=== PATIENT | female | born 2000 | race Caucasian/White ===

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

== ENCOUNTER 2019-06-23 19:42 | Emergency (ER) | payer MEDICAID, SELFPAY ==
[2019-05-28 15:12] VITALS: BMI 43.0
[2019-06-23 19:44] VITALS: BP 152/88; PULSE 124; RESP 18; TEMP 36.5; O2SAT 100; BMI 44.2
--- NOTE | 2019-06-23 19:53 | ED.VISSUMM ---
- ER Visit Summary Date of Service: 06/23/19 Chief Complaint: Vomiting and diarrhea History of Present Illness: The patient is a 19 F presenting with vomiting and diarrhea. Patient states that started on Monday. She had several episodes of both vomiting and diarrhea. She denies blood in her stool or emesis. No sick contacts. No recent travel. No bad food exposure. She denies abdominal pain. Denies fever. She complains of dysuria. She is unsure if she could be . She went tanning last night and has redness to her face and back. Denies other complaints. Physical Examination: Vitals are stable. Patient is afebrile. Heart rate 124. Alert no acute distress. HEENT exam facial erythema with no blistering Neck is supple. Lungs are clear and equal bilaterally. Heart is regular and tachycardic Abdomen is soft nontender nondistended. No guarding or rebound Extremities are unremarkable. Skin is warm and dry. Erythematous with no blistering No focal neurologic deficit. Remainder of exam is unremarkable. Emergency Department Course and Treatment: Patient was given IV fluids, Zofran. CBC, chemistries unremarkable. Urinalysis unremarkable. hCG negative. Repeat heart rate 95. Patient is feeling improved on reevaluation. She is given prescription for Zofran. Advised to follow-up with primary care physician. Advised return to ED if worsening complaints. Disposition: Discharge home Impression: Vomiting and diarrhea This note was generated with Right Hemisphere dictation software. It may contain incorrect words, spelling, and punctuation that were not noted in review of the chart prior to signing ED Disposition - Plan for ED Patient: Instructions: VOMITING AND DIARRHEA, Nonspecific (Adult) Prescriptions: Ondansetron [Zofran Odt] 4 mg PO Q8H PRN PRN #10 tab PRN Reason: Nausea Prescription Printed Referrals: Gwen Palomares MD [Primary Care Provider] -
[2019-06-23] MEDS: 0.9% Normal Saline 1,000 ML 1000 ML IV (20:07)
[2019-06-23] MEDS: Ondansetron 4 MG/2 ML Vial IV (20:07)
[2019-06-23 20:20] LABS: Absolute Lymphocyte Count 2.49 X10^3/uL (0.83-4.51); Absolute Neutrophil Count 6.2 X10^3/uL (2.0-7.7); Basophil# 0.02 X10^3/uL; Basophil% 0.2 % (0-1); Eosinophil# 0.12 X10^3/uL; Eosinophils% 1.3 % (0-5); Hematocrit 38.8 % (37-47); Hemoglobin 12.4 g/dL (12.0-15.0); Lymphocyte # 2.49 X10^3/ul (4.0); Lymphocyte % 26.8 % (19-41); Mean Corpuscular Hgb 25.7 pg (27.0-32.0); Mean Corpuscular Volume 80.3 fL (81-99); Mean Platelet Vol. 9.2 fl (6.2-12.0); Monocyte# 0.43 X10^3/uL; Monocyte% 4.6 % (0-10); NRBC Flagged by Analyzer 0 % (0-5); Neutrophil # 6.18 X10^3/uL (2.7-7.7); Neutrophil % 66.7 % (47-70); Platelet Count 331 K/mm3 (150-450); RBC Distribution Width CV 15.3 % (11.6-14.6); RBC Distribution Width SD 44.6 fl (35.1-43.9); Red Blood Count 4.83 M/mm3 (4.2-5.4); White Blood Count 9.3 K/mm3 (4.4-11.0)
[2019-06-23 20:28] LABS: Internal QC Validated? YES +Cl - CLEAR BKGD; Pregnancy, Serum, hCG Quali. NEGATIVE Negative
[2019-06-23 20:32] LABS: Anion Gap 7 (5-15); BUN 14 mg/dL (7-18); BUN/Creat Ratio 17.2 RATIO (10-20); Calcium,Total 8.9 mg/dL (8.5-10.1); Chloride 106 mmol/L (98-107); Creatinine, Serum 0.82 mg/dL (0.55-1.02); EST Glomerular Filtration Rate 95 mL/min (>60); Est Glom Filt Rate - Afr Amer 115 mL/min (>60); Glucose 99 mg/dL (74-106); Potassium 3.7 mmol/L (3.5-5.1); Sodium Level 141 mmol/L (136-145)
[2019-06-23 20:48] LABS: Mucous, Urine 0 SEEN /hpf (<or=2+); Red Blood Cells-Urine 0 SEEN /hpf (0-5)
[2019-06-23 20:50] LABS: Color, Urine Yellow (Yellow); Glucose, Dipstick Normal (Normal); Ketone-Dipstick Negative (Negative); Leukocyte Esterase-Dipstick 500 /ul (Negative); Nitrite-Dipstick Negative (Negative); Occult Blood-Urine Negative /ul (Negative); Protein-Dipstick Negative (Negative); Specific Gravity, Urine 1.025 (1.002-1.030); Urine Bilirubin Dipstick Negative (Negative); Urine Clarity Cloudy (Clear); Urine Urobilinogen Normal (Normal)
[2019-06-23 20:57] LABS: Squamous Epithelial Cells - UA 10-25 SEEN /hpf (5-10); White Blood Cells 0-5 SEEN /hpf (0-5)
[2019-06-23 20:58] LABS: Bacteria 2+ /hpf (None Seen)
--- NOTE | 2019-06-23 21:09 | ED.DEP ---
ED Disposition - Plan for ED Patient: Instructions: VOMITING AND DIARRHEA, Nonspecific (Adult) Prescriptions: Ondansetron [Zofran Odt] 4 mg PO Q8H PRN PRN #10 tablet PRN Reason: Nausea Referrals: Gwen Palomares MD [Primary Care Provider] -
[2019-06-23 21:25] VITALS: BP 148/86; PULSE 105; RESP 16; O2SAT 96
== END 2019-06-23 21:26 | disposition home or self-care (01) ==
LOC: ED 19:55
PROVIDERS: Emergency Provider Emergency Medicine; PCP Internal Medicine
DX: R11.2 Nausea with vomiting, unspecified (principal); R19.7 Diarrhea, unspecified; R30.0 Dysuria; R00.0 Tachycardia, unspecified
CPT/HCPCS: 80048; 81001; 84703; 85025; 96361; 96374; 99283; J7030; J2405

== ENCOUNTER 2020-03-29 16:05 | Outpatient (CLI) | payer MEDICAID, SELFPAY ==
[2020-03-29 16:38] VITALS: BMI 46.0
[2020-03-29 17:06] LABS: ROM Internal Control Test YES-OK TO RESULT pt. (Internal QC); ROM Patient Test Negative (Negative)
--- NOTE | 2020-04-13 08:24 | OB.TRI.PN ---
Progress Notes Date of Service: 04/28/20 Progress Note: S: 31w1d with MALVIN: 05/30/20 with complaint of leakage of fluid. No vaginal bleeding. O: Reactive NST 135, moderate variability, accels. No contractions. ROM Plus negative result. A:Vaginal Discharge P: 1) Discharge home with PTL precautions Laboratory Studies: Laboratory Tests 03/29/20 Range/Units 16:35 Vag Amniotic Fld Detect Negative (Negative)
== END 2020-03-29 17:45 | disposition home or self-care (01) ==
LOC: WPOUT 16:18 → OBT 16:18
PROVIDERS: PCP Internal Medicine; Visit Provider Advanced Practice Midwife
DX: O23.593 Infection of other part of genital tract in pregnancy, third trimester (principal); Z3A.31 31 weeks gestation of pregnancy
CPT/HCPCS: 59025; 59050; 84112; 99218; G0378

== ENCOUNTER 2020-05-17 23:00 | Outpatient (CLI) | payer MEDICAID, SELFPAY ==
[2020-05-17 23:20] VITALS: TEMP 36.7; O2SAT 97
[2020-05-17 23:22] VITALS: BP 123/77; PULSE 103
[2020-05-17 23:43] VITALS: BMI 46.5
[2020-05-18 00:03] LABS: ROM Internal Control Test YES-OK TO RESULT pt. (Internal QC); ROM Patient Test Negative (Negative)
--- NOTE | 2020-05-18 07:03 | OB.TRI.NOTE ---
History of Present Illness Date of Service: 05/17/20 Was patient seen by the physician?: No Reason For Visit: RULE OUT LABOR Date of Service: 05/17/20 Final MALVIN: 05/30/20 Final MALVIN Source: US <20 weeks Gestational age: 38 Weeks and 2 Days Allergies Penicillins [PCN] Allergy (Verified 05/17/20 23:38) Itching - Pertinent Past Medical History Medical History: Past Medical History (Last Reviewed 05/28/19 @ 15:12 by Martinez Cisneros) Depression Psoriasis Laboratory Studies: Laboratory Tests 05/17/20 Range/Units 23:30 Vag Amniotic Fld Detect Negative (Negative) Physical Exam Vitals: Vital Signs Temp Pulse BP Pulse Ox 98.1 F 103 H 123/77 H 97 05/17/20 23:20 05/17/20 23:22 05/17/20 23:22 05/17/20 23:20 NST - FHR Rate Baby A Baseline: 120 Variability:: Moderate Accelerations:: 15 x 15 Decelerations:: Variable NST Reactive:: Non-Reactive FHR Category:: Category II Uterine Activity:: irreg ctxs Impression/Plan 20 YOF w/ false labor NST accels are broken up, doesn't meet criteria will call patient for NST today and reeval
== END 2020-05-18 00:20 | disposition home or self-care (01) ==
LOC: WPOUT 23:11 → WP 23:12
PROVIDERS: PCP Internal Medicine; Visit Provider Obstetrics & Gynecology
DX: O47.1 False labor at or after 37 completed weeks of gestation (principal); Z3A.38 38 weeks gestation of pregnancy
CPT/HCPCS: 59025; 59050; 84112; 99218; G0378

== ENCOUNTER 2020-05-18 23:45 | Outpatient (CLI) | payer MEDICAID, SELFPAY ==
[2020-05-17 23:43] VITALS: BMI 46.5
[2020-05-18 23:58] VITALS: BP 111/68; PULSE 108; TEMP 36.6; O2SAT 99
[2020-05-19 00:03] VITALS: BMI 46.0
--- NOTE | 2020-05-22 11:12 | OB.TRI.NOTE ---
- Problem List (1) Decreased movement Status: Acute History of Present Illness Date of Service: 05/18/20 Was patient seen by the physician?: No Reason For Visit: DECREASED MOVEMENT Date of Service: 05/18/20 Final MALVIN: 05/30/20 Final MALVIN Source: US <20 weeks Gestational age: 38 Weeks and 6 Days History of Present Illness: female at 38w4d presents to labor and delivery for decreased movement. No contractions, vaginal bleeding or leakage of fluid. Allergies Penicillins [PCN] Allergy (Verified 05/19/20 00:05) Itching - Pertinent Past Medical History Medical History: Past Medical History (Last Reviewed 05/28/19 @ 15:12 by Martinez Cisneros) Depression Psoriasis Physical Exam Vitals: Vital Signs Temp Pulse BP Pulse Ox 97.8 F 108 H 111/68 99 05/18/20 23:58 05/18/20 23:58 05/18/20 23:58 05/18/20 23:58 NST - FHR Rate Baby A Baseline: 130 Variability:: Moderate Accelerations:: 15 x 15 Decelerations:: None NST Reactive:: Yes Uterine Activity:: Irregular Impression/Plan A:Decreased movement P: 1) Reactive NST 2) Keep appointment in office as scheduled.
== END 2020-05-19 01:00 | disposition home or self-care (01) ==
LOC: WPOUT 23:46 → WP 23:48
PROVIDERS: PCP Internal Medicine; Visit Provider Advanced Practice Midwife
DX: O36.8130 Decreased fetal movements, third trimester, not applicable or unspecified (principal); Z3A.38 38 weeks gestation of pregnancy
CPT/HCPCS: 59025; 59050; 99218; G0378

== ENCOUNTER 2020-05-23 06:50 | Inpatient (IN) | payer MEDICAID, SELFPAY ==
[2020-05-23] VITALS (58 sets, daily range): BP systolic 112–158; BP diastolic 58–89; PULSE 85–118; TEMP 36.1–37.5; O2SAT 93–100; BMI 47.2
[2020-05-23] MEDS: Lactated Ringers 1,000 ML 50 ML IV (08:40)
[2020-05-23] MEDS: Oxytocin 30 units/NS 500 ml 30 UNITS/500 ML IV.SOLN IV (08:41)
[2020-05-23] MEDS: Mag Hydrox/Al Hydrox/Simeth 30 ML UDC PO (09:22)
[2020-05-23 09:37] LABS: Absolute Lymphocyte Count 3.05 X10^3/uL (0.83-4.51); Absolute Neutrophil Count 6.7 X10^3/uL (2.0-7.7); Basophil# 0.02 X10^3/uL; Basophil% 0.2 % (0-1); Eosinophil# 0.07 X10^3/uL; Eosinophils% 0.7 % (0-5); Hematocrit 32.2 % (37-47); Hemoglobin 10.2 g/dL (12.0-15.0); Lymphocyte # 3.05 X10^3/ul (4.0); Lymphocyte % 29.4 % (19-41); Mean Corp Hgb Conc 31.7 g/dL (32-36); Mean Corpuscular Hgb 25.5 pg (27.0-32.0); Mean Corpuscular Volume 80.5 fL (81-99); Mean Platelet Vol. 9.4 fl (6.2-12.0); Monocyte# 0.54 X10^3/uL; Monocyte% 5.2 % (0-10); NRBC Flagged by Analyzer 0 % (0-5); Neutrophil # 6.68 X10^3/uL (2.7-7.7); Neutrophil % 64.2 % (47-70); Platelet Count 294 K/mm3 (150-450); RBC Distribution Width CV 15.2 % (11.6-14.6); RBC Distribution Width SD 44.3 fl (35.1-43.9); White Blood Count 10.4 K/mm3 (4.4-11.0)
[2020-05-23] MEDS: Lactated Ringers 500 ML 999 ML IV ×2 (10:05→17:36)
[2020-05-23] MEDS: fentaNYL-bupivacaine (epidural) 100 ML BAG EPIDURAL ×3 (11:07→15:28)
--- NOTE | 2020-05-23 12:04 | HP.PCM_ITS ---
- Problem List (1) Encounter for elective induction of labor Status: Acute (2) Obesity affecting Status: Acute (3) History of depression Status: Acute History Date of Admission: 05/03/18 Final MALVIN: 05/30/20 Final MALVIN Source: US <20 weeks Gestational age: 39 Weeks and 0 Days History of this : This is a 20 year-old, G [2], P [1001], at 39 weeks gestational age for elective induction of labor. complicated by obesity. Medical History: Medical History (Last Reviewed 05/28/19 @ 15:12 by Martinez Cisneros) Depression F32.9 Psoriasis L40.9 Allergies Penicillins [PCN] Allergy (Verified 05/19/20 00:05) Itching Home Medications: Home Medications Prenatabs FA 1 tab PO DAILY 03/29/20 Acetaminophen [Tylenol] 650 mg PO PRN PRN 05/17/20 cycloBENZAPRine HCl [Flexeril] 5 mg PO TID PRN 05/23/20 Smoking Status: Never smoker Alcohol: None Number of Fetus(es): 1 NST - FHR Rate Baby A Baseline: 125 Variability:: Moderate Accelerations:: 15 x 15 Decelerations:: None NST Reactive:: Yes FHR Category:: Category I Uterine Activity:: Irregular History Past Pregnancies: Past Pregnancies Delivery Date Name GA/ Weeks Outcome Route Wt Sex Labor Length Anesthesia Delivery Location Provider FOB Labs: Mom's Problem List Problem Status Onset Code Encounter for elective induction of labor Acute Z34.90 Obesity affecting Acute O99.210 History of depression Acute Z86.59 Mom's Labs & Results 05/23/20 05/23/20 09:20 09:20 WBC 10.4 RBC 4.00 L Hgb 10.2 L Hct 32.2 L MCV 80.5 L MCH 25.5 L MCHC 31.7 L RDW Std Deviation 44.3 H RDW Coeff of Nneka 15.2 H Plt Count 294 MPV 9.4 Immature Gran % (Auto) 0.300 Neut % (Auto) 64.2 Lymph % (Auto) 29.4 [place] % (Auto) 5.2 Eos % (Auto) 0.7 Baso % (Auto) 0.2 Absolute Neuts (auto) 6.7 Absolute Lymphs (auto) 3.05 Nucleated RBC % 0 Blood Type A POSITIVE Antibody Screen NEGATIVE Course Did the patient receive Yes care? Labs Blood Type: A RH: POSITIVE RPR/VDRL/Syphilis Nonreactive Rubella status Immune HbSAg Negative Chlamydia Negative Gonorrhea Negative HIV/AIDS Non-Reactive Group B Strep: Negative Current Obstetrical History Gestational Diabetes No Incompetent Cervix No Infertility No IUGR No Macrosomia No Hypertension/Pre-eclampsia No Placenta Previa/Abruption No PTL/PROM No Uterine anomaly No Oligohydramnios No Polyhydramnios No Multiple gestation No Past Medical History Asthma Yes: has inhalers for use prn Diabetes No Hypertension No Heart disease No Mitral valve prolapse No Neurologic/Seizure disorder/ Yes: Migraines Migraines Kidney disease No Liver disease No Varicosities No Clotting disorders/Hx of DVT No Thyroid Dysfunction No Other medical diseases No Psychiatric disorders Yes: Hx. Depression - off Zoloft during Major trauma No Abnormal PAP smear No Sleep apnea No Mammogram in the last 2 years No Medications Taken During Dose/Freq.: [Flexeril] 5 mg tid prn Reason for taking medication [ last taken a few months ago maybe Flexeril] Social History Marital Status: SINGLE Alleged father Jose Angel Lopez Hx Smoking No Smoking Status Never smoker Expected Delivery Method: Spontaneous Vaginal Review of Systems Constitutional: Denies: Chills, Fever, Weight Change HEENT: Denies: Head Aches, Sinus Congestion, Sinus Drainage Cardiovascular: Denies: Chest Pain, Palpitations Respiratory: Denies: Cough, Shortness of breath at rest, Sputum production Gastrointestinal: Denies: Abdominal Pain, Nausea, Vomiting Genitourinary: Denies: Dysuria Musculoskeletal: Denies: Joint Pain, Joint Tenderness Skin: Denies: Rash, Wounds Neurological: Denies: Numbness, Tingling, Focal weakness Psychiatric: Denies: Anxiety, Depression, Homicidal Ideations, Suicidal Ideations Hematologic/ Lymphatic: Denies: Easy Bruising, Easy Bleeding Physical Exam Vitals: Vital Signs Temp Pulse BP Pulse Ox 97.6 F L 105 H 114/59 L 100 05/23/20 09:30 05/23/20 11:59 05/23/20 11:27 05/23/20 11:59 General: Alert, Oriented x3, No apparent distress HEENT: Atraumatic, Normocephalic Cardiovascular: Regular rate, Regular Rhythm, No murmurs Lungs: Clear to auscultation, Normal air movement, No rhonchi, No wheeze Abdomen: Soft, Non Tender, Gravid Extremities:: No edema INSTRUMENT CALIBRATOR: Normal external genitalia Estimated gestational size: Appropriate for gestational size Presentation: Cephalic Cervix Dilation (cm): 4 - AROM for small amount of clear fluid. IUPC and FSE placed, tolerated well. Station: -2 Effacement (%): 50 Assessment/Plan All Active Problems (Last Reviewed 05/28/19 @ 15:12 by Martinez Cisneros) Decreased movement (Acute) Encounter for elective induction of labor (Acute) Obesity affecting (Acute) History of depression (Acute) Physical exam, pre-employment (Acute) Vaginal discharge during in third trimester (Acute) False labor after 37 weeks of gestation without delivery (Acute) This is a 20 year-old, G [2], P [1001], at 39 weeks gestational age. A:Elective Induction of Labor Obesity in P: 1) Admit to labor and delivery 2) Routine labs. GBS negative. COVID test negative. Patient denies and covid symptoms. 3) Epidural for pain management, effective 4) AROM, IUPC and FSE placed. 5) notified of patient status and admission. Collaborative physician.
[2020-05-23] MEDS: Amnioinfusion- 0.9% NS 1,000 ML IV.SOLN. 999 ML INTRA-UTER (17:39)
--- NOTE | 2020-05-23 19:07 | PCM.PN.OB ---
Patient Problems: Active and Suspected Problems (Last Reviewed 05/28/19 @ 15:12 by Martinez Cisneros) Encounter for elective induction of labor (Acute) Obesity affecting (Acute) History of depression (Acute) Subjective: Sitting up in bed high fowlers, comfortable with epidural. Father of baby at bedside. Objective: FHR 125, moderate variability, accels, variable decels, category 2. TOCO:every 2-4 minutes, strong Aminoinfusion at 100ml/hr Cervical exam 9cm/100%/-1 with caput - Physical Exam Vitals/I&O's: Vital Signs Temp Pulse BP Pulse Ox 97.2 F L 101 H 130/79 H 100 05/23/20 18:48 05/23/20 18:47 05/23/20 18:47 05/23/20 18:47 Weight: 283 lb 15.286 oz Body Mass Index (BMI) 47.2 Intake and Output for Last 24 Hours 05/21/20 05/22/20 05/23/20 23:59 23:59 23:59 Intake Total 2394.30 / 2394.30 Output Total 475 / 475 Balance 1919.30 / 1919.30 Laboratory Results 05/23/20 09:20: WBC 10.4, RBC 4.00 L, Hgb 10.2 L, Hct 32.2 L, MCV 80.5 L, MCH 25.5 L, MCHC 31.7 L, RDW Std Deviation 44.3 H, RDW Coeff of Nneka 15.2 H, Plt Count 294, MPV 9.4, Immature Gran % (Auto) 0.300, Neut % (Auto) 64.2, Lymph % (Auto) 29.4, Dare % (Auto) 5.2, Eos % (Auto) 0.7, Baso % (Auto) 0.2, Absolute Neuts (auto) 6.7, Absolute Lymphs (auto) 3.05, Nucleated RBC % 0 05/23/20 09:20: Blood Type A POSITIVE, Antibody Screen NEGATIVE Current Medications Acetaminophen (Acetaminophen 500 Mg Tablet) 500 - 1,000 mg PO Q6H PRN PRN PRN Reason: Pain Score 1-3 Al Hydroxide/Mg Hydroxide (Mag Hydrox/Al Hydrox/Simeth 30 Ml Udc) 15 - 30 ml PO Q4H PRN PRN PRN Reason: INDIGESTION Last Admin: 05/23/20 09:22 Dose: 30 ml Documented by: Citric Acid/Sodium Citrate (Sodium Citrate/Citric Acid 30 Ml Udc) 30 ml PO X1 PRN PRN Reason: Section Ephedrine Sulfate (Ephedrine Sulfate 50 Mg/Ml Ampul) 10 mg IV Q10M PRN PRN Reason: hypotension Ephedrine Sulfate (Ephedrine Sulfate 50 Mg/Ml Ampul) 10 mg IM Q30M PRN PRN Reason: hypotension Fentanyl Citrate (Fentanyl 100 Mcg/2 Ml Ampul) 25 - 50 mcg IV Q2H PRN PRN PRN Reason: Pain Score 4-10 Fentanyl/Bupivacaine/Sodium Chlor (Fentanyl-Bupivacaine (Epidural) 100 Ml Bag) 0 ml EPIDURAL UD [facility]; Protocol Last Admin: 05/23/20 15:28 Dose: 100 ml Documented by: Lactated Ringer's () 500 mls @ 999 mls/hr IV .Q31M PRN PRN Reason: Epidural Last Infusion: 05/23/20 10:35 Dose: Infused Documented by: Lactated Ringer's () 500 mls @ 999 mls/hr IV .Q31M PRN PRN Reason: Corrective Measures Last Infusion: 05/23/20 18:05 Dose: Infused Documented by: Lactated Ringer's () 1,000 mls @ 50 mls/hr IV .Q20H [facility] Last Infusion: 05/23/20 18:05 Dose: 186 mls/hr Documented by: Oxytocin/Sodium Chloride () 30 units in 500 mls @ 2 mls/hr IV .Q250H [facility] Last Infusion: 05/23/20 18:57 Dose: 14 mls/hr Documented by: Nalbuphine HCl (Nalbuphine 10 Mg/Ml Ampul) 5 mg IV Q3H PRN PRN PRN Reason: ITCHING Naloxone HCl (Naloxone 0.4 Mg/Ml Syringe) 0.02 mg IV Q1M PRN PRN Reason: RR <10 and pt unresponsive Ondansetron HCl (Ondansetron 4 Mg/2 Ml Vial) 4 mg IV Q4H PRN PRN PRN Reason: NAUSEA Prochlorperazine Edisylate (Prochlorperazine 10 Mg/2 Ml Vial) 10 mg IV Q6H PRN PRN PRN Reason: NAUSEA Sodium Chloride (0.9% Saline Lock 10 Ml Syringe) 10 - 40 ml IV X1 PRN PRN Reason: SALINE FLUSH Medical Necessity - Tobacco Use Smoking Status: Never smoker Assessment/Plan All Active Problems (Last Reviewed 05/28/19 @ 15:12 by Martinez Cisneros) Decreased movement (Acute) Encounter for elective induction of labor (Acute) Obesity affecting (Acute) History of depression (Acute) Physical exam, pre-employment (Acute) Vaginal discharge during in third trimester (Acute) False labor after 37 weeks of gestation without delivery (Acute) A:Active Labor progressing Category 2 FHT P: 1) Continue with active management 2) Pitocin infusion 3) Positional changes 4) updated on patient status
[2020-05-23] MEDS: Oxytocin 30 units/NS 500 ml 30 UNITS/500 ML IV.SOLN 334 UNITS IV (20:42)
--- NOTE | 2020-05-23 20:58 | PCM.OPRPT ---
Problem List (1) Encounter for elective induction of labor Status: Acute (2) Obesity affecting Status: Acute (3) History of depression Status: Acute (4) Vaginal delivery Status: Acute (5) First degree perineal laceration Status: Acute Vaginal Delivery Maternal Presentation: Active Labor Method of Induction: Pitocin Amniotic Membrane Rupture Type: Artificial Amniotic Fluid Description: Clear Final MALVIN: 05/30/20 Gestational age: 39 Weeks and 0 Days Date of Procedure: 05/23/20 Pre-Operative Diagnosis: Induction of labor Post-Operative Diagnosis: Vaginal delivery Surgery/ Procedure Performed: Spontaneous Vaginal Delivery Type of Anesthesia: Epidural Description of Procedure: Progressed to complete with urge to push. of viable male infant over first degree perineal laceration at 2040. APGARS 7, 9. Head delivered with nuchal hand and CAN x1, delivered through. Infant delivered and placed on maternal abdomen. Mouth and nares wiped for secretions, strong cry. Pitocin started for active 3rd stage management. Cord clamped and cut, delayed clamping after pulsations ceased by FOB. Placenta delivered with expression, intact, 3 vessel cord. Perineum inspected and revealed first degree laceration, repaired with 3.0 vicryl rapide in normal fashion under epidural analgesia. Vaginal sweep completed by me, sponge and instrument count correct. Fundus firm, hemostasis achieved, EBL 150 ml. Mom and baby stable, planning to breastfeed, family bonding well. notified. Presentation: Vertex Placental Delivery Description: Spontaneous Placenta Disposition: [facility] Cord Vessel Description: 3 Vessels Cord Entanglement: Around neck x 1, loose Estimated Blood Loss: 150 ml A gender: Male (1 minute): 7 (5 minute): 9 Episiotomy Description: None Laceration: Perineal Extension/lac, 1st degree Medications given after delivery: IV Pitocin Complications: None
--- NOTE | 2020-05-23 23:30 | NURSING ---
Epidural catheter removed, blue tip intact.
--- NOTE | 2020-05-24 00:16 | NURSING ---
Report given to Katie MARTINEZ, taking over pt and care at this time.
[2020-05-24] MEDS: Acetaminophen 500 MG Tablet 1000 MG PO (00:54)
[2020-05-24 02:35] VITALS: BP 124/77; PULSE 85; RESP 18; TEMP 37.1; O2SAT 98
--- NOTE | 2020-05-24 03:37 | NURSING ---
This RN assuming care of patient and at this time. Report received from Yolette MARTINEZ.
--- NOTE | 2020-05-24 04:13 | NURSING ---
0330- This RN gave report to David Gonzalez RN.
[2020-05-24 04:38] VITALS: BP 109/62; PULSE 100; RESP 16; TEMP 36.9
[2020-05-24] MEDS: Naproxen 250 MG Tablet 500 MG PO ×2 (06:32→16:25)
[2020-05-24 08:00] VITALS: BP 125/66; PULSE 91; RESP 18; TEMP 36.2; O2SAT 98
[2020-05-24 12:00] VITALS: BP 122/76; PULSE 99; RESP 18; TEMP 36.3
[2020-05-24 15:08] LABS: Hematocrit 29.2 % (37-47); Hemoglobin 9.2 g/dL (12.0-15.0); Mean Corp Hgb Conc 31.5 g/dL (32-36); Mean Corpuscular Hgb 25.3 pg (27.0-32.0); Mean Corpuscular Volume 80.2 fL (81-99); Mean Platelet Vol. 9.2 fl (6.2-12.0); Platelet Count 258 K/mm3 (150-450); RBC Distribution Width CV 15.5 % (11.6-14.6); RBC Distribution Width SD 45.2 fl (35.1-43.9); Red Blood Count 3.64 M/mm3 (4.2-5.4); White Blood Count 11.9 K/mm3 (4.4-11.0)
--- NOTE | 2020-05-24 15:39 | PCM.PN.OB ---
Patient Problems: Active and Suspected Problems (Last Reviewed 05/28/19 @ 15:12 by Martinez Cisneros) Encounter for elective induction of labor (Acute) Obesity affecting (Acute) History of depression (Acute) Vaginal delivery (Acute) First degree perineal laceration (Acute) Subjective: Doing well per patient and nursing staff. Ambulating and taking PO without difficulty. Voiding and passing flatus. and bottle feeding. Denies any headache, visual changes, chest pain, shortness of breath, leg pain or increased bleeding. Lochia normal. Planning D/C home tomorrow. - Physical Exam Vitals/I&O's: Vital Signs Temp Pulse Resp BP Pulse Ox 97.4 F L 99 18 122/76 H 98 05/24/20 12:00 05/24/20 12:00 05/24/20 12:00 05/24/20 12:00 05/24/20 08:00 Oxygen Delivery Method Room Air Weight: 283 lb 15.286 oz Body Mass Index (BMI) 47.2 Intake and Output for Last 24 Hours 05/22/20 05/23/20 05/24/20 23:59 23:59 23:59 Intake Total 3402.17 / 3402.17 Output Total 675 / 675 1000 / 1000 Balance 2727.17 / 2727.17 -1000 / -1000 General: Alert, Oriented x3, Cooperative HEENT: Atraumatic, Normocephalic Neck: Trachea Midline Lungs: Clear to auscultation, Normal air movement, No rhonchi, No wheeze Cardiovascular: Regular rate, Regular Rhythm, No murmurs Abdomen: Bowel Sounds Present, Soft - fundus firm 2 below U Extremities: Edema - +1 BLE edema. No clonus Psych/Mental Status: Normal Affect, Appropriate Laboratory Results 05/24/20 14:55: WBC 11.9 H, RBC 3.64 L, Hgb 9.2 L, Hct 29.2 L, MCV 80.2 L, MCH 25.3 L, MCHC 31.5 L, RDW Std Deviation 45.2 H, RDW Coeff of Nneka 15.5 H, Plt Count 258, MPV 9.2 Current Medications Acetaminophen (Acetaminophen 500 Mg Tablet) 1,000 mg PO Q8H PRN PRN PRN Reason: Pain Score 1-3 Last Admin: 05/24/20 00:54 Dose: 1,000 mg Documented by: Bisacodyl (Bisacodyl 10 Mg Suppository) 10 mg RECTAL UD PRN PRN Reason: If no BM Dibucaine (Dibucaine 30 Gm Tube) 1 applic TOPICAL TID PRN PRN; Protocol PRN Reason: Discomfort Hydrocortisone (Hydrocortisone 2.5% Crm) 1 applic TOPICAL TID PRN PRN; Protocol PRN Reason: Discomfort Methylergonovine Maleate (Methylergonovine 0.2 Mg/Ml Ampul) 0.2 mg IM X1 PRN PRN Reason: Excess bleeding/uterine atony Naproxen (Naproxen 250 Mg Tablet) 500 mg PO Q8H PRN PRN PRN Reason: Pain Score 1-3 Last Admin: 05/24/20 06:32 Dose: 500 mg Documented by: Ondansetron HCl (Ondansetron 4 Mg/2 Ml Vial) 4 mg IV Q4H PRN PRN PRN Reason: Nausea Senna/Docusate Sodium (Senna/Docusate Sodium 1 Tablet) 1 - 2 tablet PO DAILY PRN PRN PRN Reason: Constipation Simethicone (Simethicone 80 Mg Tablet) 80 mg PO PCHS PRN PRN Reason: Indigestion/Stomach pain Sodium Chloride (0.9% Saline Lock 10 Ml Syringe) 5 - 15 ml IV UD PRN PRN Reason: SALINE FLUSH Medical Necessity - Tobacco Use Smoking Status: Never smoker Assessment/Plan All Active Problems (Last Reviewed 05/28/19 @ 15:12 by Martinez Cisneros) Decreased movement (Acute) Encounter for elective induction of labor (Acute) Obesity affecting (Acute) History of depression (Acute) Vaginal delivery (Acute) First degree perineal laceration (Acute) Physical exam, pre-employment (Acute) Vaginal discharge during in third trimester (Acute) False labor after 37 weeks of gestation without delivery (Acute) A:PPD #1 and Bottle feeding P: 1) Routine care 2) pain controlled 3) Planning D/C home tomorrow.
[2020-05-24] MEDS: Senna/Docusate Sodium 1 Tablet PO (16:25)
[2020-05-24 16:37] VITALS: BP 109/54; PULSE 94; RESP 18; TEMP 36.9
[2020-05-24 20:05] VITALS: BP 113/70; PULSE 80; RESP 18; TEMP 36.2
[2020-05-25] MEDS: Naproxen 250 MG Tablet 500 MG PO (00:37)
[2020-05-25 03:30] VITALS: BP 122/75; PULSE 83; RESP 18; TEMP 36.5
[2020-05-25 08:00] VITALS: BP 123/66; PULSE 85; RESP 16; TEMP 36.7
--- NOTE | 2020-05-25 08:17 | PCM.PN.OB ---
Patient Problems: Active and Suspected Problems (Last Reviewed 05/28/19 @ 15:12 by Martinez Cisneros) Encounter for elective induction of labor (Acute) Obesity affecting (Acute) History of depression (Acute) Vaginal delivery (Acute) First degree perineal laceration (Acute) Subjective: Patient seen at bedside. Feeling good. Denies any pain. with support from department. Ambulating and voiding without difficulty. Had 2 BMs. Lochia decreasing. Requesting discharge home today. - Physical Exam Vitals/I&O's: Vital Signs Temp Pulse Resp BP Pulse Ox 97.7 F L 83 18 122/75 H 98 05/25/20 03:30 05/25/20 03:30 05/25/20 03:30 05/25/20 03:30 05/24/20 08:00 Oxygen Delivery Method Room Air Weight: 283 lb 15.286 oz Body Mass Index (BMI) 47.2 Intake and Output for Last 24 Hours 05/23/20 05/24/20 05/25/20 23:59 23:59 23:59 Intake Total 3402.17 / 3402.17 Output Total 675 / 675 1000 / 1000 Balance 2727.17 / 2727.17 -1000 / -1000 General: Alert, Oriented x3 Oral: Moist Mucosa Lungs: Normal air movement Cardiovascular: Regular rate Abdomen: Soft, Non Tender, Non-Distended Extremities: No Calf Tenderness Skin: No rashes Neurological: Cranial nerves II-XII grossly intact Laboratory Results 05/24/20 14:55: WBC 11.9 H, RBC 3.64 L, Hgb 9.2 L, Hct 29.2 L, MCV 80.2 L, MCH 25.3 L, MCHC 31.5 L, RDW Std Deviation 45.2 H, RDW Coeff of Nneka 15.5 H, Plt Count 258, MPV 9.2 Current Medications Acetaminophen (Acetaminophen 500 Mg Tablet) 1,000 mg PO Q8H PRN PRN PRN Reason: Pain Score 1-3 Last Admin: 05/24/20 00:54 Dose: 1,000 mg Documented by: Bisacodyl (Bisacodyl 10 Mg Suppository) 10 mg RECTAL UD PRN PRN Reason: If no BM Dibucaine (Dibucaine 30 Gm Tube) 1 applic TOPICAL TID PRN PRN; Protocol PRN Reason: Discomfort Hydrocortisone (Hydrocortisone 2.5% Crm) 1 applic TOPICAL TID PRN PRN; Protocol PRN Reason: Discomfort Methylergonovine Maleate (Methylergonovine 0.2 Mg/Ml Ampul) 0.2 mg IM X1 PRN PRN Reason: Excess bleeding/uterine atony Naproxen (Naproxen 250 Mg Tablet) 500 mg PO Q8H PRN PRN PRN Reason: Pain Score 1-3 Last Admin: 05/25/20 00:37 Dose: 500 mg Documented by: Ondansetron HCl (Ondansetron 4 Mg/2 Ml Vial) 4 mg IV Q4H PRN PRN PRN Reason: Nausea Senna/Docusate Sodium (Senna/Docusate Sodium 1 Tablet) 1 - 2 tablet PO DAILY PRN PRN PRN Reason: Constipation Last Admin: 05/24/20 16:25 Dose: 2 tablet Documented by: Simethicone (Simethicone 80 Mg Tablet) 80 mg PO PCHS PRN PRN Reason: Indigestion/Stomach pain Sodium Chloride (0.9% Saline Lock 10 Ml Syringe) 5 - 15 ml IV UD PRN PRN Reason: SALINE FLUSH Medical Necessity - Tobacco Use Smoking Status: Never smoker Assessment/Plan All Active Problems (Last Reviewed 05/28/19 @ 15:12 by Martinez Cisneros) Decreased movement (Acute) Encounter for elective induction of labor (Acute) Obesity affecting (Acute) History of depression (Acute) Vaginal delivery (Acute) First degree perineal laceration (Acute) Physical exam, pre-employment (Acute) Vaginal discharge during in third trimester (Acute) False labor after 37 weeks of gestation without delivery (Acute) PPD #2 1st degre laceration Routine care support Discharge home with follow up in office
--- NOTE | 2020-05-25 08:20 | DCINST_ITS ---
Discharge Diet: No Restrictions Discharge Activity: Return to Normal Activity May resume sexual activity in: 6-8 weeks Weight Bearing Status: Weight bearing as tolerated Additional Instructions: If you experience any of the following, contact your healthcare provider. * Bleeding that soaks a pad every hour for 2 hours * Fever 100.4 or higher * Unrelieved incision or abdominal pain * Swelling, redness, discharge or bleeding from your incision or episiotomy site * Your incision begins to separate * Problems urinating (including inability to urinate or burning while urinating). * Visual changes * Severe headache * Flu-like symptoms * Pain or redness in one of both of your breasts * Pain, warmth, tenderness or swelling in your legs, especially the calf area * Frequent nausea and vomiting * Symptoms of depression or anxiety If you experience any of the following, call 911 or go to the nearest Emergency Room. * Chest pain * Problems breathing * Seizure activity * Partial or complete paralysis of a body part, slurred speech, weakness or drooping of the face, or a sudden inability to walk or hold your balance Allergies/Adverse Reactions: Allergies Penicillins [PCN] Allergy (Verified 05/19/20 00:05) Itching Medications to take at Discharge Prenatabs FA 1 tab PO DAILY 03/29/20 When: Virtual visit- 2 weeks Primary Care Physician: Gwen Palomares MD [Primary Care Provider] - Test Results: Test results from this visit will be discussed in further detail at your follow- up appointment, if applicable. Proposed Discharge Date: 05/25/20
--- NOTE | 2020-05-25 08:20 | PCM.DCVAG ---
Discharge Diet: No Restrictions Discharge Activity: Return to Normal Activity May resume sexual activity in: 6-8 weeks Weight Bearing Status: Weight bearing as tolerated Additional Instructions: If you experience any of the following, contact your healthcare provider. Bleeding that soaks a pad every hour for 2 hours Fever 100.4 or higher Unrelieved incision or abdominal pain Swelling, redness, discharge or bleeding from your incision or episiotomy site Your incision begins to separate Problems urinating (including inability to urinate or burning while urinating). Visual changes Severe headache Flu-like symptoms Pain or redness in one of both of your breasts Pain, warmth, tenderness or swelling in your legs, especially the calf area Frequent nausea and vomiting Symptoms of depression or anxiety If you experience any of the following, call 911 or go to the nearest Emergency Room. Chest pain Problems breathing Seizure activity Partial or complete paralysis of a body part, slurred speech, weakness or drooping of the face, or a sudden inability to walk or hold your balance Allergies/Adverse Reactions: Allergies Penicillins [PCN] Allergy (Verified 05/19/20 00:05) Itching Medications to take at Discharge Prenatabs FA 1 tab PO DAILY 03/29/20 When: Virtual visit- 2 weeks Primary Care Physician: Gwen Palomares MD [Primary Care Provider] - Test Results: Test results from this visit will be discussed in further detail at your follow-up appointment, if applicable. Proposed Discharge Date: 05/25/20
[2020-05-25 12:54] VITALS: BP 131/77; PULSE 96; RESP 15; TEMP 36.6
== END 2020-05-25 12:55 | disposition home or self-care (01) | DRG 560 ==
PROVIDERS: Admitting Provider Advanced Practice Midwife; PCP Internal Medicine; Visit Provider Advanced Practice Midwife
DX: O99.214 Obesity complicating childbirth (principal); E66.9 Obesity, unspecified; O69.81X0 Labor and delivery complicated by cord around neck, without compression, not applicable or unspecified; O99.52 Diseases of the respiratory system complicating childbirth; J45.909 Unspecified asthma, uncomplicated; O70.0 First degree perineal laceration during delivery; Z3A.39 39 weeks gestation of pregnancy; Z37.0 Single live birth
CPT/HCPCS: 36415; 59025; 59050; 85025; 85027; 86850; 86900; 86901; 99218; J7030; J7120; G0378

== ENCOUNTER 2021-04-12 12:03 | Emergency (ER) | payer MEDICAID, SELFPAY ==
[2021-04-12 12:03] VITALS: BP 152/99; PULSE 118; RESP 16; TEMP 36.4; O2SAT 98; BMI 45.7
--- NOTE | 2021-04-12 12:50 | US_ITS ---
INDICATION: PAIN RUQ/EPIGASTRIC PAIN EXAMINATION: Ultrasound US Abdomen Limited (quadrant) TECHNIQUE: Montes scale imaging and DOPPLER imaging right upper quadrant performed. COMPARISON: None. FINDINGS: Liver demonstrates mild increased echogenicity. No intermetatarsal dilatation. Expected hepatopedal portal flow. Gallbladder is within normal limits. There is no pericholecystic fluid. No gallstones. No report of Smith''s sign. Common bile duct is 4 mm. Gallbladder wall is 2 mm. Pancreas as visualized demonstrates expected echogenicity. Portion of the right kidney visualized within normal limits. US/Gallbladder IMPRESSION: Fatty infiltration of the liver otherwise negative Electronically Signed: Anjel Dowling MD at 14:24 EST Tel , Service support ,
--- NOTE | 2021-04-12 12:51 | ED.VIS.GI ---
HPI HPI - GI History of Present Illness Chief Complaint: Abd Pain Informant: patient Abdominal Pain/Flank Pain Onset: Today Context: Gradual Onset Timing: Continuous and Waxes and wanes Quality: Aching Location: Epigastric and RUQ Current Severity: Severe Maximum Severity: Severe Worsened by: Nothing Relieved by: Nothing Nausea/Vomiting/Emesis GI Symptom: Positive for Nausea and Vomiting Diarrhea/Melena/Hematochezia GI Symptom: Positive for Diarrhea; Negative for Melena and Hematochezia Stool Quality: Negative for Black, Maroon and BRB per rectum Associated Symptoms Associated Symptoms: Negative for Dysuria, Frequency, Hematuria and Urgency Narrative Narrative: Patient presenting with discomfort that started when she woke up at 3 AM but it was only mild, epigastrium and right upper quadrant, worse after eating buttered toast this morning, associated with vomiting and diarrhea. No fevers or chills. No radiation of the pain into her back. Never had this before. No history of any surgeries in her abdomen. Not currently. She had a taco for dinner last night but did not have any discomfort afterwards until she woke up at 3 AM. Prior similar symptoms: No PFSH PFSH Medical History (Updated 04/12/21 @ 16:[address] Christian Barfield MD) Depression Psoriasis Home Medications Prenatabs FA 1 tab PO DAILY 03/29/20 [History Last Taken 05/21/20 10:00 1 tab] dicyclomine 20 mg PO Q6H PRN PRN #20 capsule 04/12/21 [Rx Last Taken Unknown] metoclopramide HCl 10 mg PO Q6H PRN #16 tab 04/12/21 [Rx Last Taken Unknown] omeprazole 20 mg PO DAILY #14 capsule 04/12/21 [Rx Last Taken Unknown] Allergy/AdvReac Type Severity Reaction Status Date / Time Penicillins [PCN] Allergy Itching Verified 04/12/21 12:05 Social History Smoking Status: Never smoker ROS ROS ED Constitutional Constitutional ED: Denies chills or fever(s) Eyes Eyes: Denies change in vision or diplopia ENT ENT ED: Denies rhinorrhea or sore throat Cardiovascular Cardiovascular: Denies chest pain or palpitations Respiratory/Chest Respiratory/Chest: Denies cough or dyspnea Gastrointestinal Gastrointestinal: Reports abdominal pain, diarrhea, nausea and vomiting Genitourinary Genitourinary ED: Denies dysuria or hematuria Musculoskeletal Musculoskeletal: Denies back pain or neck pain Integumentary Denies abscess or rash Neurologic Neurologic: Denies headache(s), paresthesias or weakness Psychiatric Psychiatric: Denies anxiety or suicidal thoughts EXAM Physical Exam Const Vital Signs: 04/12/21 12:03 04/12/21 15:32 Temperature 97.6 F L Temperature Source Temporal Pulse Rate 118 H 88 Respiratory Rate 16 Blood Pressure 152/99 H 118/80 Blood Pressure Mean 116 92 Pulse Ox 98 Oxygen Delivery Method Room Air Positive well nourished and well developed General Appearance ED: well developed and NAD HEENT Reports moist mucous membranes normocephalic and atraumatic Eyes PERRL and EOMs intact bilaterally Neck full ROM and supple Resp normal respiratory effort and clear to auscultation bilaterally Cardio regular rate, regular rhythm and no murmurs GI non-distended GI Narrative: Moderate-severe tenderness epigastrium and right upper quadrant with positive Smith's, mildly tender right lower quadrant otherwise benign abdomen. Auscultation: normoactive bowel sounds Palpation: soft Back/Spine no CVA tenderness General Back: other FROM Extremity normal to inspection General Extremety ED: Negative for edema, pulses abnormal or tenderness General Extremity: Negative for edema or pulses abnormal Neuro oriented x3, CN's II-XII intact bilaterally and no sensory deficits noted Sensorium / Orientation: awake and alert Motor Exam: strength 5/5 throughout Skin no rashes or lesions noted and no wounds MDM MDM MDM Narrative Medical decision making narrative: Patient is very tender in the right upper quadrant so initially ultrasound of the gallbladder was obtained in addition to blood work and urinalysis. It was all normal. Therefore since she was tender throughout the right side including the right lower quadrant, a CT of the abdomen/pelvis with IV contrast was obtained and it was also unremarkable for anything acute. The patient had requested an additional dose of analgesics other than the initial morphine and Zofran she was given, she was given another dose of morphine which did help but she was still in discomfort. Given that everything is normal, differential includes intraluminal functional intestinal causes of abdominal pain in addition to biliary colic although she has no cholelithiasis. In order to diagnose functional gallbladder problems she will need an outpatient HIDA scan, however she is able to have that as an outpatient, it is not available at this time since his nuclear medicine, and she can follow-up if her symptoms persist. She had some mild guarding in the right upper quadrant but not in the lower abdomen to make me think this is an acute ovarian problem, the focus of her pain really is in her upper abdomen. I only did the CT because she did have some mild discomfort in her right lower quadrant around the area of McBurney's point to ensure this is not acute appendicitis, and no other acute abdominal issues such as mesenteric adenopathy were seen. Differential also includes intestinal spasm due to viral gastroenteritis if that is what is causing her vomiting and diarrhea but she did not have any diarrhea to send for testing here in the emergency department and she does not have risk for C. difficile or other acute bacterial causes. Patient is comfortable with this overall plan. Lab Data Attestation: I reviewed the patient's lab results. Labs: Laboratory Results - last 24 hr 04/12/21 04/12/21 04/12/21 13:20 13:20 14:10 WBC 8.7 RBC 4.93 Hgb 13.0 Hct 39.6 MCV 80.3 L MCH 26.4 L MCHC 32.8 RDW Std Deviation 45.0 H RDW Coeff of Nneka 15.6 H Plt Count 301 MPV 9.0 Immature Gran % (Auto) 0.300 Neut % (Auto) 81.1 H Lymph % (Auto) 14.5 L [place] % (Auto) 3.1 Eos % (Auto) 0.9 Baso % (Auto) 0.1 Absolute Neuts (auto) 7.0 Absolute Lymphs (auto) 1.26 Nucleated RBC % 0 Sodium 137 Potassium 3.8 Chloride 107 Carbon Dioxide 25.0 Anion Gap 5 BUN 15 Creatinine 0.56 Estim Creat Clear Calc 136.07 Est GFR (MDRD) Af Amer 175 Est GFR (MDRD) Non-Af 145 BUN/Creatinine Ratio 27.0 H Glucose 90 Calcium 8.8 Total Bilirubin 0.40 AST 18 ALT 34 Alkaline Phosphatase 102 Total Protein 8.3 H Albumin 3.4 Globulin 4.9 H Albumin/Globulin Ratio 0.7 L Lipase 95 Urine Color Yellow Urine Clarity Cloudy Urine pH 7.0 Ur Specific [place] 1.010 Urine Protein Negative Urine Glucose (UA) Normal Urine Ketones Negative Urine Occult Blood Negative Urine Nitrite Negative Urine Bilirubin Negative Urine Urobilinogen Normal Ur Leukocyte Esterase 25 H Urine RBC 0 SEEN Urine WBC 0-5 SEEN Ur Squamous Epith Cells 0-5 SEEN Urine Bacteria 2+ Urine Mucus 0 SEEN Urine Test Negative Radiography Diagnostic Testing: Clinical Impression(s) from Imaging Studies Gallbladder Ultrasound 04/12/21 12:50 IMPRESSION: Fatty infiltration of the liver otherwise negative Electronically Signed: Anjel Dowling MD at 14:24 EST Tel , Service support , Abdomen/Pelvis CT 04/12/21 15:20 IMPRESSION: Trace free fluid in the pelvis likely physiologic in this young menstruating female. Mild fatty infiltration of the liver. Pars defect L5 without significant listhesis. The appendix is visualized within normal limits. Electronically Signed: Anjel Dowling MD at 16:45 EST Tel , Service support , Discharge Plan Triage Chief Complaint: Abd Pain ED Provider: Christian Barfield Dx/Rx/DC Orders Clinical Impression: Right-sided abdominal pain of unknown etiology, Nausea, vomiting and diarrhea Instructions: Abdominal Pain, ED Vomiting and Diarrhea ... Prescriptions: New dicyclomine 10 MG capsule 20 mg PO Q6H PRN PRN (Reason: abdominal discomfort) Qty: 20 RF: 0 metoclopramide HCl [metoclopramide HCl] 10 MG tablet 10 mg PO Q6H PRN (Reason: nausea and vomiting) Qty: 16 RF: 0 omeprazole [omeprazole] 20 MG capsule 20 mg PO DAILY Qty: 14 RF: 0 No Action Prenatabs FA 1 tab PO DAILY RF: 0 Primary Care Provider: Gwen Palomares Referrals: Gwen Palomares MD [Primary Care Provider] - 3-5 Days if not improving Disposition Disposition: Home, Self Care
[2021-04-12] MEDS: Ketorolac 30 MG/ML Syringe IV (13:30)
[2021-04-12] MEDS: Ondansetron 4 MG/2 ML Vial IV (13:30)
[2021-04-12] MEDS: Morphine 4 MG/ML Syringe IV ×2 (13:30→15:55)
[2021-04-12 13:45] LABS: Absolute Lymphocyte Count 1.26 X10^3/uL (0.83-4.51); Basophil# 0.01 X10^3/uL; Basophil% 0.1 % (0-1); Eosinophil# 0.08 X10^3/uL; Eosinophils% 0.9 % (0-5); Hematocrit 39.6 % (37-47); Lymphocyte # 1.26 X10^3/ul (0.83-4.51); Lymphocyte % 14.5 % (19-41); Mean Corp Hgb Conc 32.8 g/dL (32-36); Mean Corpuscular Hgb 26.4 pg (27.0-32.0); Mean Corpuscular Volume 80.3 fL (81-99); Monocyte# 0.27 X10^3/uL; Monocyte% 3.1 % (0-10); NRBC Flagged by Analyzer 0 % (0-5); Neutrophil # 7.03 X10^3/uL (2.7-7.7); Neutrophil % 81.1 % (47-70); Platelet Count 301 K/mm3 (150-450); RBC Distribution Width CV 15.6 % (11.6-14.6); Red Blood Count 4.93 M/mm3 (4.2-5.4); White Blood Count 8.7 K/mm3 (4.4-11.0)
[2021-04-12 13:58] LABS: ALB/GLOB Ratio 0.7 RATIO (0.9-2.4); AST(SGOT) 18 U/L (15-37); Alanine Aminotransfer ALT/SGPT 34 U/L (13-56); Albumin, Serum 3.4 g/dL (3.2-5.0); Alkaline Phosphatase 102 U/L (45-117); Anion Gap 5 (5-15); BUN 15 mg/dL (7-18); Calcium,Total 8.8 mg/dL (8.5-10.1); Chloride 107 mmol/L (98-107); Creatinine, Serum 0.56 mg/dL (0.55-1.02); EST Glomerular Filtration Rate 145 mL/min (>60); Est Glom Filt Rate - Afr Amer 175 mL/min (>60); Estimated Creatinine Clearance 136.07 ml/min; Globulin 4.9 g/dL (2.2-4.2); Glucose 90 mg/dL (74-106); Lipase 95 U/L (73-393); Potassium 3.8 mmol/L (3.5-5.1); Protein, Total 8.3 g/dL (6.4-8.2); Sodium Level 137 mmol/L (136-145)
[2021-04-12 14:18] LABS: Mucous, Urine 0 SEEN /hpf (<or=2+); Red Blood Cells-Urine 0 SEEN /hpf (0-5)
[2021-04-12 14:23] LABS: Color, Urine Yellow (Yellow); Glucose, Dipstick Normal (Normal); Ketone-Dipstick Negative (Negative); Leukocyte Esterase-Dipstick 25 /ul (Negative); Nitrite-Dipstick Negative (Negative); Occult Blood-Urine Negative /ul (Negative); Protein-Dipstick Negative (Negative); Urine Bilirubin Dipstick Negative (Negative); Urine Clarity Cloudy (Clear); Urine Urobilinogen Normal (Normal)
[2021-04-12 14:29] LABS: Bacteria 2+ /hpf (None Seen); Internal QC Validated? YES +Cl - CLEAR BKGD; Pregnancy, Urine Negative Negative; Squamous Epithelial Cells - UA 0-5 SEEN /hpf (5-10); White Blood Cells 0-5 SEEN /hpf (0-5)
--- NOTE | 2021-04-12 15:20 | CT_ITS ---
INDICATION: R sided abd pain EXAMINATION: CT ABDOMEN AND PELVIS WITH CONTRAST - CT Abdomen And Pelvis W/ Contrast Injection TECHNIQUE: Helically acquired images were obtained of the abdomen and pelvis following IV contrast. A radiation dose optimization technique was used for this scan. Oral contrast: None. COMPARISON: None. FINDINGS: LOWER CHEST: Mild subpleural atelectasis lung bases. LIVER: Mild low-attenuation of the liver suggests mild fatty infiltration. No focal mass. GALLBLADDER AND BILIARY TREE: No calcified gallstones. No gallbladder distension or wall edema. No intra- or extrahepatic biliary ductal dilation. PANCREAS: No focal cystic or solid mass. SPLEEN: Normal size without focal cystic or solid mass. ADRENAL GLANDS: No nodules. KIDNEYS AND URETERS: 2 low-attenuation lesions left kidney likely a cyst. No hydronephrosis. PERITONEUM: Trace free fluid noted in the pelvis could be physiologic. No other fluid collection. BOWEL: No evidence of acute appendicitis. No stomach or bowel distension. No focal inflammatory change. LYMPH NODES: No enlarged mesenteric or retroperitoneal lymph nodes. VESSELS: Aorta is non-dilated. URINARY BLADDER: Unremarkable. REPRODUCTIVE ORGANS: No pelvic masses. ABDOMINAL WALL: No discrete abdominal or pelvic wall hernia. BONES: Pars defect seen L5. CT/Abdomen/Pelvis W IV Cont ONLY IMPRESSION: Trace free fluid in the pelvis likely physiologic in this young menstruating female. Mild fatty infiltration of the liver. Pars defect L5 without significant listhesis. The appendix is visualized within normal limits. Electronically Signed: Anjel Dowling MD at 16:45 EST Tel , Service support ,
[2021-04-12 15:32] VITALS: BP 118/80; PULSE 88
[2021-04-12] MEDS: Dicyclomine 20 MG/2 ML Vial IM (17:43)
[2021-04-12] MEDS: Mag Hydrox/Al Hydrox/Simeth 30 ML UDC PO (17:43)
[2021-04-12 17:53] VITALS: BP 130/67; PULSE 90
== END 2021-04-12 18:01 | disposition home or self-care (01) ==
PROVIDERS: Emergency Provider Emergency Medicine; PCP Internal Medicine
DX: R10.9 Unspecified abdominal pain (principal); R11.2 Nausea with vomiting, unspecified; R19.7 Diarrhea, unspecified; Z79.899 Other long term (current) drug therapy
CPT/HCPCS: 74177; 76705; 80053; 81001; 81025; 83690; 85025; 96372; 96374; 96375; 96376; 99285; Q9967; A4216; J2405

== ENCOUNTER 2021-04-21 20:41 | Emergency (ER) | payer MEDICAID, SELFPAY ==
[2021-04-21 20:43] VITALS: BP 131/87; PULSE 92; RESP 14; TEMP 36.2; O2SAT 100; BMI 45.7
--- NOTE | 2021-04-21 20:55 | ED.RN ---
Patient unable to have BM at this time. She did void in the hat but it was filled with toilet paper so unable to collect a specimen. Returned to room to change and await provider.
[2021-04-21 20:56] VITALS: BP 141/79; PULSE 100; RESP 17; TEMP 36.7; O2SAT 100
--- NOTE | 2021-04-21 21:00 | ED.RN ---
patient shows this nurse photos of moderate bright red blood on toilet paper and reports the bleeding started yesterday. Says she has abdominal pain that she came in here for, last Monday.
--- NOTE | 2021-04-21 21:15 | CT_ITS ---
STUDY: CT ABDOMEN AND PELVIS WITH CONTRAST REASON FOR EXAM: Female, 21 years old. Abd pain, GI bleed -- IV PO Contrast RADIATION DOSAGE (If Supplied By Facility): CTDIvol = ( 22.07 ) mGy, DLP = ( 1366.14 ) mGycm TECHNIQUE: Transaxial images were obtained from the dome of the diaphragm to the symphysis pubis without oral contrast. Oral and amp; IV Gastrografin and amp; 100mL Isovue-370 was administered. Sagittal and coronal images were reconstructed. Individualized dose optimization techniques were used for this CT. COMPARISON: 04/12/2021 FINDINGS: The visualized lung bases are unremarkable. The visualized portions of the heart are within normal limits. Normal liver. Normal gallbladder and extrahepatic biliary system. Heterogeneous enhancement of the spleen may be due to contrast phase. Normal pancreas. Normal bilateral adrenal glands. Normal right kidney. Normal left kidney. Left renal cysts. Normal visualized stomach. Normal small intestine. Normal colon. The appendix is visualized and appears normal. Normal abdominal aorta. Normal inferior vena cava. Normal retroperitoneum. Normal urinary bladder. Normal visualized uterus. Normal abdominal wall. Thoracolumbar vertebral alignment maintained. CT/Abdomen/Pelvis WITH Contrast IMPRESSION: No acute abnormal finding in the abdomen or pelvis. No finding of gastrointestinal bleed, though this is complicated by presence of oral contrast. Electronically Signed: Baldemar Peres MD at 23:24 EST Tel , Service support ,
--- NOTE | 2021-04-21 21:20 | EX.ED.DYSGE1 ---
HPI <Dr. Samanta Johnson MD - Last Filed: 04/21/21 23:09> History of Present Illness Chief Complaint: GI Bleed Informant: patient Onset/Context/Timing Onset: Yesterday Current Severity: Moderate Narrative Narrative: Patient presents today secondary to bright red blood from rectum. She states yesterday morning she noted some bright red blood. No significant bleeding noted the rest of the day but today has had bleeding throughout the day. She states this morning there was what appears to be clots. This evening she was just urinating but had bright red blood coming from her rectum. Patient was seen approximately 10 days ago for upper abdominal pain. Work-up at that time was unremarkable including CT scan of the abdomen and pelvis with IV contrast only. Patient denies fever or chills. She states she is continue to have upper abdominal pain has been following a bland diet. PFSH <Dr. Samanta Johnson MD - Last Filed: 04/21/21 23:09> [facility] Medical History (Updated 04/21/21 @ 23:[address] Christian Barfield MD) Depression Psoriasis Home Medications dicyclomine 20 mg PO Q6H PRN PRN #20 capsule 04/12/21 [Rx Last Taken Unknown] omeprazole 20 mg PO DAILY #14 capsule 04/12/21 [Rx Last Taken Unknown] metoclopramide HCl [Reglan] 10 mg PO Q6H PRN 04/21/21 [History Last Taken Unknown] Allergy/AdvReac Type Severity Reaction Status Date / Time Penicillins [PCN] Allergy Itching Verified 04/21/21 20:43 Social History Smoking Status: Never smoker ROS <Dr. Samanta Johnson MD - Last Filed: 04/21/21 23:09> ROS ED Constitutional Constitutional ED: Denies chills or fever(s) Eyes Eyes: Denies change in vision ENT ENT ED: Denies sore throat Cardiovascular Cardiovascular: Denies chest pain Respiratory/Chest Respiratory/Chest: Denies cough or dyspnea Gastrointestinal Gastrointestinal: Reports abdominal pain and other Details: Bright red blood per rectum ; Denies diarrhea, nausea or vomiting Genitourinary Genitourinary ED: Denies dysuria Musculoskeletal Musculoskeletal: Denies back pain Integumentary Denies rash Neurologic Neurologic: Denies headache(s) or weakness Allergic/Immunologic Allergic/Immunologic ED: Denies urticaria EXAM <Dr. Samanta Johnson MD - Last Filed: 04/21/21 23:09> Physical Exam Const Vital Signs: 04/21/21 20:43 04/21/21 20:56 04/21/21 21:56 Temperature 97.1 F L 98.0 F Temperature Source Temporal Temporal Pulse Rate 92 100 74 Respiratory Rate 14 17 21 H Blood Pressure 131/87 H 141/79 H 137/96 H Blood Pressure Mean 101 99 109 Pulse Ox 100 100 100 Oxygen Delivery Method Room Air Room Air Room Air Positive well nourished and well developed General Appearance ED: well developed Eyes PERRL and EOMs intact bilaterally Neck supple Chest Wall inspection of chest normal and palpation of chest normal Resp normal respiratory effort and clear to auscultation bilaterally Cardio regular rate and regular rhythm GI GI Narrative: Abdomen soft with tenderness in the epigastrium as well as across the lower abdomen. No guarding or rebound. Hypoactive bowel sounds. External rectal examination reveals no hemorrhoids. No obvious blood. Extremity normal to inspection Neuro oriented x3 Sensorium / Orientation: alert Psych mental status grossly normal Skin no rashes or lesions noted <Dr. Christian Barfield MD - Last Filed: 04/21/21 23:55> Physical Exam Const Vital Signs: 04/21/21 20:43 04/21/21 20:56 04/21/21 21:56 Temperature 97.1 F L 98.0 F Temperature Source Temporal Temporal Pulse Rate 92 100 74 Respiratory Rate 14 17 21 H Blood Pressure 131/87 H 141/79 H 137/96 H Blood Pressure Mean 101 99 109 Pulse Ox 100 100 100 Oxygen Delivery Method Room Air Room Air Room Air MDM <Dr. Samanta Johnson MD - Last Filed: 04/21/21 23:09> [facility] MDM Narrative Medical decision making narrative: Lab work obtained. CT scan with p.o. and IV contrast ordered. Patient given morphine and Zofran along with IV fluids Lab Data Attestation: I reviewed the patient's lab results. Labs: Laboratory Results - last 24 hr 04/21/21 04/21/21 04/21/21 21:45 21:45 21:45 WBC 11.1 H RBC 5.22 Hgb 13.5 Hct 41.3 MCV 79.1 L MCH 25.9 L MCHC 32.7 RDW Std Deviation 45.2 H RDW Coeff of Nneka 15.9 H Plt Count 358 MPV 9.1 Immature Gran % (Auto) 0.400 Neut % (Auto) 66.1 Lymph % (Auto) 27.2 [place] % (Auto) 3.8 Eos % (Auto) 2.0 Baso % (Auto) 0.5 Absolute Neuts (auto) 7.4 Absolute Lymphs (auto) 3.02 Nucleated RBC % 0 Sodium 138 Potassium 3.8 Chloride 104 Carbon Dioxide 24.0 Anion Gap 10 BUN 13 Creatinine 0.71 Estim Creat Clear Calc 107.32 Est GFR (MDRD) Af Amer 132 Est GFR (MDRD) Non-Af 109 BUN/Creatinine Ratio 18.3 Glucose 87 Calcium 9.7 Total Bilirubin 0.30 Direct Bilirubin 0.08 AST 19 ALT 32 Alkaline Phosphatase 96 Total Protein 9.1 H Albumin 3.7 Globulin 5.4 H Lipase 100 Serum , Qual NEGATIVE Radiography Diagnostic Testing: Clinical Impression(s) from Imaging Studies Abdomen/Pelvis CT 04/21/21 21:15 IMPRESSION: No acute abnormal finding in the abdomen or pelvis. No finding of gastrointestinal bleed, though this is complicated by presence of oral contrast. Electronically Signed: Baldemar Peres MD at 23:24 EST Tel , Service support , Treatment and Re-Evaluation Comments:: Lab work is unremarkable. White count is slightly elevated compared to previous. Hemoglobin is slightly higher than most recent labs. CT scan will be sent oncoming physician. If there is bowel inflammation she was started on antibiotics. If not she will be given Proctofoam suppositories for possible internal hemorrhoid. She will follow up with GI. <Dr. Christian Barfield MD - Last Filed: 04/21/21 23:55> [facility] Narrative Medical decision making narrative: Patient checked out to me for reevaluation. Her CT returned completely normal/negative. She is doing okay clinically and hemodynamically stable. Patient already has dicyclomine to use as needed for pain which was helping a little, and she has [id number] Preparation H with an applicator that she would prefer to use empirically for hemorrhoid treatment which I think is fine. I discussed with GI, the patient will follow up as an outpatient, she is comfortable with that plan. Lab Data Attestation: I reviewed the patient's lab results. Labs: Laboratory Results - last 24 hr 04/21/21 04/21/21 04/21/21 21:45 21:45 21:45 WBC 11.1 H RBC 5.22 Hgb 13.5 Hct 41.3 MCV 79.1 L MCH 25.9 L MCHC 32.7 RDW Std Deviation 45.2 H RDW Coeff of Nneka 15.9 H Plt Count 358 MPV 9.1 Immature Gran % (Auto) 0.400 Neut % (Auto) 66.1 Lymph % (Auto) 27.2 [place] % (Auto) 3.8 Eos % (Auto) 2.0 Baso % (Auto) 0.5 Absolute Neuts (auto) 7.4 Absolute Lymphs (auto) 3.02 Nucleated RBC % 0 Sodium 138 Potassium 3.8 Chloride 104 Carbon Dioxide 24.0 Anion Gap 10 BUN 13 Creatinine 0.71 Estim Creat Clear Calc 107.32 Est GFR (MDRD) Af Amer 132 Est GFR (MDRD) Non-Af 109 BUN/Creatinine Ratio 18.3 Glucose 87 Calcium 9.7 Total Bilirubin 0.30 Direct Bilirubin 0.08 AST 19 ALT 32 Alkaline Phosphatase 96 Total Protein 9.1 H Albumin 3.7 Globulin 5.4 H Lipase 100 Serum , Qual NEGATIVE Radiography Diagnostic Testing: Clinical Impression(s) from Imaging Studies Abdomen/Pelvis CT 04/21/21 21:15 IMPRESSION: No acute abnormal finding in the abdomen or pelvis. No finding of gastrointestinal bleed, though this is complicated by presence of oral contrast. Electronically Signed: Baldemar Peres MD at 23:24 EST Tel , Service support , Discharge Plan Triage Chief Complaint: GI Bleed ED Provider: Samanta Johnson Dx/Rx/DC Orders Clinical Impression: GI bleed, Lower abdominal pain Instructions: ED Lower GI Bleeding (Stable) Prescriptions: No Action dicyclomine 10 MG capsule 20 mg PO Q6H PRN PRN (Reason: abdominal discomfort) Qty: 20 RF: 0 omeprazole [omeprazole] 20 MG capsule 20 mg PO DAILY Qty: 14 RF: 0 metoclopramide HCl [Reglan] 10 MG tablet 10 mg PO Q6H PRN (Reason: nausea and vomiting) RF: 0 Primary Care Provider: Gwen Palomares Referrals: Gwen Palomares MD [Primary Care Provider] - Friend,DO Jose [STAFF PHYSICIAN] - As soon as possible Disposition Disposition: Home, Self Care
[2021-04-21] MEDS: Morphine 4 MG/ML Syringe IV (21:51)
[2021-04-21] MEDS: 0.9% Normal Saline 1,000 ML 150 ML IV (21:51)
[2021-04-21] MEDS: Ondansetron 4 MG/2 ML Vial IV (21:51)
[2021-04-21 21:52] LABS: Absolute Lymphocyte Count 3.02 X10^3/uL (0.83-4.51); Absolute Neutrophil Count 7.4 X10^3/uL (2.0-7.7); Basophil# 0.06 X10^3/uL; Basophil% 0.5 % (0-1); Eosinophil# 0.22 X10^3/uL; Hematocrit 41.3 % (37-47); Hemoglobin 13.5 g/dL (12.0-15.0); Lymphocyte # 3.02 X10^3/ul (0.83-4.51); Lymphocyte % 27.2 % (19-41); Mean Corp Hgb Conc 32.7 g/dL (32-36); Mean Corpuscular Hgb 25.9 pg (27.0-32.0); Mean Corpuscular Volume 79.1 fL (81-99); Mean Platelet Vol. 9.1 fl (6.2-12.0); Monocyte# 0.42 X10^3/uL; Monocyte% 3.8 % (0-10); NRBC Flagged by Analyzer 0 % (0-5); Neutrophil # 7.35 X10^3/uL (2.7-7.7); Neutrophil % 66.1 % (47-70); Platelet Count 358 K/mm3 (150-450); RBC Distribution Width CV 15.9 % (11.6-14.6); RBC Distribution Width SD 45.2 fl (35.1-43.9); Red Blood Count 5.22 M/mm3 (4.2-5.4); White Blood Count 11.1 K/mm3 (4.4-11.0)
[2021-04-21 21:56] VITALS: BP 137/96; PULSE 74; RESP 21; O2SAT 100
[2021-04-21 22:11] LABS: Internal QC Validated? YES +Cl - CLEAR BKGD; Pregnancy, Serum, hCG Quali. NEGATIVE Negative
[2021-04-21 22:20] LABS: AST(SGOT) 19 U/L (15-37); Alanine Aminotransfer ALT/SGPT 32 U/L (13-56); Albumin, Serum 3.7 g/dL (3.2-5.0); Alkaline Phosphatase 96 U/L (45-117); Anion Gap 10 (5-15); BUN 13 mg/dL (7-18); BUN/Creat Ratio 18.3 RATIO (10-20); Bilirubin, Direct 0.08 mg/dL (0.00-0.30); Calcium,Total 9.7 mg/dL (8.5-10.1); Chloride 104 mmol/L (98-107); Creatinine, Serum 0.71 mg/dL (0.55-1.02); EST Glomerular Filtration Rate 109 mL/min (>60); Est Glom Filt Rate - Afr Amer 132 mL/min (>60); Estimated Creatinine Clearance 107.32 ml/min; Globulin 5.4 g/dL (2.2-4.2); Glucose 87 mg/dL (74-106); Lipase 100 U/L (73-393); Potassium 3.8 mmol/L (3.5-5.1); Protein, Total 9.1 g/dL (6.4-8.2); Sodium Level 138 mmol/L (136-145)
[2021-04-22 00:02] VITALS: PULSE 86; RESP 21; O2SAT 98
== END 2021-04-22 00:03 | disposition home or self-care (01) ==
PROVIDERS: Emergency Provider Emergency Medicine; PCP Internal Medicine
DX: K92.2 Gastrointestinal hemorrhage, unspecified (principal); R10.816 Epigastric abdominal tenderness; Z79.899 Other long term (current) drug therapy
CPT/HCPCS: 74177; 80048; 80076; 83690; 84703; 85025; 96361; 96374; 96375; 99284; J7030; Q9967; A4216; J2405

== ENCOUNTER 2021-05-27 10:21 | Day surgery (SDC) | payer MEDICAID, SELFPAY ==
[2021-05-27 10:45] VITALS: BP 144/91; PULSE 78; RESP 16; TEMP 36.5; O2SAT 100; BMI 36.6
[2021-05-27 11:00] LABS: Internal QC Validated? YES +Cl - CLEAR BKGD
[2021-05-27 11:04] LABS: Pregnancy, Urine Negative Negative
[2021-05-27] MEDS: Lactated Ringers 1,000 ML 15 ML IV (11:22)
--- NOTE | 2021-05-27 11:30 | EGD_PTH ---
PATIENT: JULIUS GRIFFIN LOC: EN U#:[id number] AGE/SX: ROOM: RE05/27/[address]: Dr. Jose Sr DO : 2000 BED: DIS: 05/27/2021 SPEC #: [id number] RECD: 05/27/21 12:53 STATUS: SEDA REFadi #: [id number] HALEY: 05/27/21 11:[address]: Jose Sr DEPT: SURGICAL PATHOLOGY RECD BY: Alyssa Astudillo ENTERED: 05/27/21 13:38 SP TYPE: EGD BIOPSY LYNN DR: Dr. Gwen Palomares MD Tissues: Esophagus, NOS Procedures: Surgery Specimen Level IV Alcian Blue/PAS (control) HEADER OPERATION[place] [place] DIAGNOSIS: Migraine, nausea, abdominal pain, GI bleed TISSUE SUBMITTED: Distal esophagus biopsy MICROSCOPIC DIAGNOSIS Distal esophagus, biopsy: Fragments of gastroesophageal mucosa with chronic inflammation. Intestinal metaplasia (goblet cell metaplasia) not identified. See comment. SJ:tl 05/28/2021 COMMENT Alcian blue/PAS stain with matched control is used in the evaluation of the specimen. MICROSCOPIC DESCRIPTION Slides are reviewed. GROSS DESCRIPTION Received in fixative is one container labeled with the patient's name and designated distal esophagus. The specimen consists of multiple irregular fragments of light currie soft tissue that in aggregate measure 1 x 0.6 x 0.1 cm. The specimen is totally submitted in one cassette. / AM:tl 05/27/21 TC:3 CPT: 66933, 32711
--- NOTE | 2021-05-27 11:34 | PCM.HP.BLA ---
History and Physical Date of Admission: 05/27/21 21 F who presents to the office today for Presented to [facility] ED 04/21/21 for evaluation of upper abdominal pain and rectal bleeding with clots starting the day prior. Was seen at [facility] ED ten days prior for upper abdominal pain. Work-up at that time was unremarkable including CT scan of the abdomen and pelvis with IV contrast only. That started the day before. Workup for 04/21/[address] abd/pel and biochemical workup. WBC noted to be slightly elevated than previous. Hemoglobin higher than previously noted. CT returned completely normal documentation and she was discharged home with dicyclomine and OTC preparation H. Bleeding has happened on occasions prior to this. She will get singular episodes of abdominal pain and then bright red rectal bleeding starting in 2019 and occurring once a month. Does not feel dicyclomine has been helpful. Denies history of EGD and colonoscopy. ROS Gastro GI: Positive for abdominal pain, bloating, constipation, diarrhea, heartburn, Blood in stool, nausea/dyspepsia and vomiting Musc Musculoskeletal: Positive for back pain and stiffness Psych Psychiatric: Positive for anxiety and Positive for depression Jose Eduardo/Lymp Hematologic/Lymphatic: Positive for easy bruising Exam Const General: cooperative and comfortable Nutritional Appearance: average body habitus and well nourished HENCA Head: normal to inspection Ears: hearing grossly normal bilaterally Nose: external nose normal Face and sinus: normal facial exam Mouth: oral mucosae normal Throat: posterior oropharynx normal Eyes General: appearance normal, both eyes and all related structures Neck Neck: normal visual inspection Chest Chest palpation & inspection: normal inspection of the chest and normal palpation of entire chest wall Resp Effort & Inspection: normal respiratory effort Auscultation: Bilateral: Clear to Auscultation Cardio Palpation: normal PMI Rate: regular rate Rhythm: regular rhythm GI Inspection: normal to inspection Auscultation: normal bowel sounds Percussion: normal to percussion Palpation: no hepatosplenomegaly Skin General: no rashes or lesions noted Neuro General: patient alert Extrem General: normal to inspection Psych Affect: normal affect Quality Reporting Tobacco Screening ([facility] 138) Smoking Status: Never smoker Assessment and Plan Assessment and Plan (1) Migraine: Status: Acute Plan - Dr. Garcia Friend, DO: I will give her a prescription of propanolol therapy. The risk and benefits of beta-sherice therapy were expressed to the patient. This is given to her due to the fact that she is taking a lot of nonsteroidals that could be causing her abdominal pain and nausea (2) Nausea: Status: Acute Plan - Dr. Garcia Friend, DO: Possibly associated with migraine disorder is controlled, peptic ulcer disease, gastritis gastroparesis. (3) Abdominal pain: Status: Acute Plan - Dr. Garcia Friend, DO: We will perform an upper endoscopy to evaluate upper GI tract. We will give her pantoprazole for short course. (4) GI bleed: Status: Acute Plan - Dr. Garcia Friend, DO: The differential diagnosis does include ulcerative colitis, ischemic colitis, anal fissure, hemorrhoidal bleeding. She will undergo colonoscopy for evaluation of the lower GI tract. I have re-examined the patient. There are no clinical changes since date of exam.
--- NOTE | 2021-05-27 12:11 | OP.EGD_ITS ---
Patient Name: Eloy Romero Procedure Date: 05/27/2021 11:39 AM Date of : 2000 Age: 21 Procedure: Upper GI endoscopy Indications: Generalized abdominal pain, Hematochezia Providers: Jose Sr DO Medicines: See the Anesthesia note for documentation of the administered medications Patient Profile: This is a 21 year old female. Refer to note in patient chart for documentation of history and physical. Patient has symptoms of acute abdominal cramping and acute global abdominal pain. Complications: No immediate complications. Procedure: Pre-Anesthesia Assessment: - Prior to the procedure, a History and Physical was performed, and patient medications and allergies were reviewed. The risks and benefits of the procedure and the sedation options and risks were discussed with the patient. All questions were answered and informed consent was obtained. Patient identification and proposed procedure were verified by the physician in the pre-procedure area. Mental Status Examination: alert and oriented. Airway Examination: normal oropharyngeal airway and neck mobility. Respiratory Examination: clear to auscultation. CV Examination: normal. Prophylactic Antibiotics: The patient does not require prophylactic antibiotics. Prior Anticoagulants: The patient has taken no previous anticoagulant or antiplatelet agents. ASA Grade Assessment: II - A patient with mild systemic disease. After reviewing the risks and benefits, the patient was deemed in satisfactory condition to undergo the procedure. The anesthesia plan was to use moderate sedation / analgesia (conscious sedation). Immediately prior to administration of medications, the patient was re-assessed for adequacy to receive sedatives. The heart rate, respiratory rate, oxygen saturations, blood pressure, adequacy of pulmonary ventilation, and response to care were monitored throughout the procedure. The physical status of the patient was re-assessed after the procedure. After obtaining informed consent, the endoscope was passed under direct vision. Throughout the procedure, the patient's blood pressure, pulse, and oxygen saturations were monitored continuously. The gastroscope was introduced through the mouth, and advanced to the second part of duodenum. The upper GI endoscopy was accomplished without difficulty. The patient tolerated the procedure well. Moderate Sedation: Moderate (conscious) sedation was administered by the endoscopy nurse and supervised by the endoscopist. The patient's oxygen saturation, heart rate, blood pressure and response to care were monitored. Total physician intraservice time was 15 minutes. Scope In: 12:02:04 PM Scope Out: 12:08:12 PM Total Procedure Duration Time 0 hours 6 minutes 8 seconds Findings: LA Grade B (one or more mucosal breaks greater than 5 mm, not extending between the tops of two mucosal folds) esophagitis with no bleeding was found 34 to 38 cm from the incisors. Biopsies were taken with a cold forceps for histology. Verification of patient identification for the specimen was done. Estimated blood loss was minimal. The entire examined stomach was normal. The second portion of the duodenum was normal. Impression: - LA Grade B reflux esophagitis. Biopsied. - Normal stomach. - Normal second portion of the duodenum. Recommendation: - Discharge patient to home. - Resume previous diet. - Use Prilosec (omeprazole) 20 mg PO daily for 8 weeks. - Continue present medications. Procedure Code(s): --- Professional --- 28443, Esophagogastroduodenoscopy, flexible, transoral; with biopsy, single or multiple 69901, 59, Moderate sedation services provided by the same physician or other qualified health care coordinator performing the diagnostic or therapeutic service that the sedation supports, requiring the presence of an independent trained observer to assist in the monitoring of the patient's level of consciousness and physiological status; initial 15 minutes of intraservice time, patient age 5 years or older CPT copyright 2017 [employer]. All rights reserved. The codes documented in this report are preliminary and upon value analysis coordinator review may be revised to meet current compliance requirements. Jose Sr DO 05/27/2021 12:11:31 PM This report has been signed electronically. Number of Addenda: 1 Note Initiated On: 05/27/2021 11:39 AM Addendum Number: 1 Addendum Date: 01/27/2022 6:09:40 AM MAC was used instead of moderate sedation for the patient. Jose Sr DO 01/27/2022 6:09:44 AM This report has been signed electronically.
--- NOTE | 2021-05-27 12:12 | OP.CCLET_ITS ---
01/27/2022 Gwne Palomares [address] [place] [address] Re : Upper GI endoscopy procedure for Eloy Romero Dear Dr. Palomares This procedure was performed on May. My impressions and recommendations are as follows: Impressions : - LA Grade B reflux esophagitis. Biopsied. - Normal stomach. - Normal second portion of the duodenum. Recommendations : - Discharge patient to home. - Resume previous diet. - Use Prilosec (omeprazole) 20 mg PO daily for 8 weeks. - Continue present medications. My findings are described in the full procedure note, which is enclosed. If I can be of further assistance, please feel free to contact me at . Sincerely, Jose Friend, 05/27/2021 12:11:31 PM This report has been signed electronically.
--- NOTE | 2021-05-27 12:37 | OP.COLON_ITS ---
Patient Name: Eloy Romero Procedure Date: 05/27/2021 12:10 PM Date of : 2000 Age: 21 Procedure: Colonoscopy Indications: Hematochezia Providers: Jose Sr DO Medicines: See the Anesthesia note for documentation of the administered medications Patient Profile: This is a 21 year old female. Refer to note in patient chart for documentation of history and physical. Patient has symptoms of acute abdominal cramping and acute global abdominal pain. Last Colonoscopy: none. The patient's first colonoscopy is today. Complications: No immediate complications. Procedure: Pre-Anesthesia Assessment: - Prior to the procedure, a History and Physical was performed, and patient medications and allergies were reviewed. The risks and benefits of the procedure and the sedation options and risks were discussed with the patient. All questions were answered and informed consent was obtained. Patient identification and proposed procedure were verified by the physician in the pre-procedure area. Mental Status Examination: alert and oriented. Airway Examination: normal oropharyngeal airway and neck mobility. Respiratory Examination: clear to auscultation. CV Examination: normal. Prophylactic Antibiotics: The patient does not require prophylactic antibiotics. Prior Anticoagulants: The patient has taken no previous anticoagulant or antiplatelet agents. ASA Grade Assessment: II - A patient with mild systemic disease. After reviewing the risks and benefits, the patient was deemed in satisfactory condition to undergo the procedure. The anesthesia plan was to use moderate sedation / analgesia (conscious sedation). Immediately prior to administration of medications, the patient was re-assessed for adequacy to receive sedatives. The heart rate, respiratory rate, oxygen saturations, blood pressure, adequacy of pulmonary ventilation, and response to care were monitored throughout the procedure. The physical status of the patient was re-assessed after the procedure. After I obtained informed consent, the scope was passed under direct vision. Throughout the procedure, the patient's blood pressure, pulse, and oxygen saturations were monitored continuously. The Colonoscope was introduced through the anus and advanced to the terminal ileum. The colonoscopy was performed without difficulty. The patient tolerated the procedure well. The quality of the bowel preparation was adequate. Moderate Sedation: Moderate (conscious) sedation was administered by the endoscopy nurse and supervised by the endoscopist. The patient's oxygen saturation, heart rate, blood pressure and response to care were monitored. Total physician intraservice time was 15 minutes. Scope In: 12:13:51 PM Scope Withdrawal Time 0 hours 10 minutes 5 seconds Scope Out: 12:30:23 PM Total Procedure Duration Time 0 hours 16 minutes 32 seconds Findings: An anal fissure was found on perianal exam. The colon (entire examined portion) appeared normal. The terminal ileum appeared normal. Impression: - Anal fissure found on perianal exam. - The entire examined colon is normal. - The examined portion of the ileum was normal. - No specimens collected. Recommendation: - Discharge patient to home. - Resume previous diet. - Continue present medications. - Use hydrocortisone suppository 25 mg 2 per rectum once a day for 3 weeks. - No repeat colonoscopy due to age. Procedure Code(s): --- Professional --- 25509, Colonoscopy, flexible; diagnostic, including collection of specimen(s) by brushing or washing, when performed (separate procedure) 61469, 59, Moderate sedation services provided by the same physician or other qualified health ambulatory care performing the diagnostic or therapeutic service that the sedation supports, requiring the presence of an independent trained observer to assist in the monitoring of the patient's level of consciousness and physiological status; initial 15 minutes of intraservice time, patient age 5 years or older CPT copyright 2017 [employer]. All rights reserved. The codes documented in this report are preliminary and upon sizing sprayer review may be revised to meet current compliance requirements. Jose Sr DO 05/27/2021 12:36:46 PM This report has been signed electronically. Number of Addenda: 1 Note Initiated On: 05/27/2021 12:10 PM Addendum Number: 1 Addendum Date: 01/27/2022 6:09:52 AM MAC was used instead of moderate sedation for the patient. Jose Sr DO 01/27/2022 6:09:56 AM This report has been signed electronically.
--- NOTE | 2021-05-27 12:37 | OP.CCLET_ITS ---
01/27/2022 Gwen Palomares [address] [place] [address] Re : Colonoscopy procedure for Eloy Romero Dear Dr. Palomares This procedure was performed on May. My impressions and recommendations are as follows: Impressions : - Anal fissure found on perianal exam. - The entire examined colon is normal. - The examined portion of the ileum was normal. - No specimens collected. Recommendations : - Discharge patient to home. - Resume previous diet. - Continue present medications. - Use hydrocortisone suppository 25 mg 2 per rectum once a day for 3 weeks. - No repeat colonoscopy due to age. My findings are described in the full procedure note, which is enclosed. If I can be of further assistance, please feel free to contact me at . Sincerely, Jose Friend, 05/27/2021 12:36:46 PM This report has been signed electronically.
[2021-05-27 12:40] VITALS: BP 139/79; BP 144/91; PULSE 92; RESP 18; TEMP 36.6; O2SAT 95
[2021-05-27 12:45] VITALS: BP 135/80; BP 144/91; PULSE 70; RESP 18; O2SAT 100
[2021-05-27 12:50] VITALS: BP 125/81; BP 144/91; PULSE 70; RESP 18; O2SAT 98
[2021-05-27 12:55] VITALS: BP 126/82; BP 144/91; PULSE 76; RESP 18; TEMP 36.5; O2SAT 100
[2021-05-27 13:06] VITALS: BP 144/91
== END 2021-05-27 23:59 | disposition home or self-care (01) ==
LOC: EN 10:24 → AC 10:25
PROVIDERS: Anesthesiology; PCP Internal Medicine; Referring Provider Internal Medicine; Visit Provider Internal Medicine Gastroenterology
PROC: 0DJD8ZZ Inspection of Lower Intestinal Tract, Via Natural or Artificial Opening Endoscopic (ICD-10-PCS; CPT 45378; principal; 2021-05-27 11:25)
DX: K21.00 Gastro-esophageal reflux disease with esophagitis, without bleeding (principal); K92.1 Melena; K60.2 Anal fissure, unspecified; R10.84 Generalized abdominal pain; R11.0 Nausea; G43.909 Migraine, unspecified, not intractable, without status migrainosus; F32.A Depression, unspecified; F41.9 Anxiety disorder, unspecified; F17.200 Nicotine dependence, unspecified, uncomplicated; Z79.899 Other long term (current) drug therapy
CPT/HCPCS: 45378; 43239; 81025; 88305; J7120; J2405

== ENCOUNTER 2021-11-28 20:41 | Emergency (ER) | payer MEDICAID, SELFPAY ==
[2021-11-28 20:42] VITALS: BP 155/97; PULSE 108; RESP 16; TEMP 36.2; O2SAT 98; BMI 33.3
--- NOTE | 2021-11-28 21:05 | ED.RN ---
PT TELLS THIS RN THAT SHE HAD AN LAST WEEK WELL. PT STILL ACTIVELY BLEEDING, 1 PAD PER DAY.
[2021-11-28 21:18] LABS: Absolute Lymphocyte Count 2.34 X10^3/uL (0.83-4.51); Absolute Neutrophil Count 7.3 X10^3/uL (2.0-7.7); Basophil# 0.03 X10^3/uL; Basophil% 0.3 % (0-1); Eosinophil# 0.06 X10^3/uL; Eosinophils% 0.6 % (0-5); Hematocrit 40.7 % (37-47); Hemoglobin 13.4 g/dL (12.0-15.0); Lymphocyte # 2.34 X10^3/ul (0.83-4.51); Mean Corp Hgb Conc 32.9 g/dL (32-36); Mean Corpuscular Hgb 27.8 pg (27.0-32.0); Mean Corpuscular Volume 84.4 fL (81-99); Mean Platelet Vol. 9.6 fl (6.2-12.0); Monocyte# 0.37 X10^3/uL; Monocyte% 3.6 % (0-10); NRBC Flagged by Analyzer 0 % (0-5); Neutrophil # 7.28 X10^3/uL (2.7-7.7); Neutrophil % 71.7 % (47-70); Platelet Count 326 K/mm3 (150-450); RBC Distribution Width CV 13.9 % (11.6-14.6); RBC Distribution Width SD 42.8 fl (35.1-43.9); Red Blood Count 4.82 M/mm3 (4.2-5.4); White Blood Count 10.2 K/mm3 (4.4-11.0)
--- NOTE | 2021-11-28 21:21 | EDS_ITS ---
HPI HPI - Psych History of Present Illness Chief Complaint: Suicidal Narrative Narrative: 21-year-old female presenting with suicidal ideation. She states she is thought about driving her car into a tree to kill herself. She told her girlfriend this about a week ago and her girlfriend sent a screenshot of this message to her ex- who now would not let her see her kids. Subsequently she broke up with her girlfriend. She states she had an about a week ago. Patient with increasing thoughts of hurting herself and wanting to . She denies homicidal ideation. She states she is seeing somebody from the counseling center but is only seen him once. She was previously on Zoloft for depression but does not take this anymore. She states he has not done any drugs or tried to ingest anything. PFSH PFSH Medical History Abdominal pain Anxiety Back pain Depression Easy bruising Migraine Nausea Psoriasis Smoker Wears glasses Allergy/AdvReac Type Severity Reaction Status Date / Time Penicillins [PCN] Allergy Itching Verified 11/28/21 20:45 Social History Smoking Status: Never smoker ROS ROS ED Constitutional Constitutional ED: Denies chills or fever(s) Eyes Eyes: Denies change in vision ENT ENT ED: Denies rhinorrhea or sore throat Cardiovascular Cardiovascular: Denies chest pain or palpitations Respiratory/Chest Respiratory/Chest: Denies cough or dyspnea Gastrointestinal Gastrointestinal: Denies abdominal pain or constipation Genitourinary Genitourinary ED: Denies dysuria or hematuria Musculoskeletal Musculoskeletal: Denies arthralgias or back pain Integumentary Denies abscess or Abrasions Neurologic Neurologic: Denies headache(s) or paresthesias Psychiatric Psychiatric: Reports anxiety, depression and suicidal ideation Endocrine Endocrinology: Denies polydipsia or polyphagia EXAM Physical Exam Const Vital Signs: 11/28/21 20:42 11/28/21 21:42 11/28/21 23:30 Temperature 97.2 F L Temperature Source Temporal Pulse Rate 108 H Respiratory Rate 16 16 18 Blood Pressure 155/97 H Blood Pressure Mean 116 Pulse Ox 98 Oxygen Delivery Method Room Air Positive well nourished General Appearance ED: NAD; Negative for pallor HEENT normocephalic and atraumatic Eyes PERRL and EOMs intact bilaterally Resp normal respiratory effort and clear to auscultation bilaterally Auscultation: Negative for rales, rhonchi or wheezes Cardio Rate: regular rate Rhythm: regular rhythm GI non-tender and non-distended Neuro oriented x3, CN's II-XII intact bilaterally, no sensory deficits noted and deep tendon reflexes 2+ bilaterally Sensorium / Orientation: alert Psych Appearance: grossly normal Activity / Motor Behavior: appropriate eye contact Speech: normal speech Mood & Affect: sad and tearful Thought Content: suicidality, No homicidality and No hallucination(s) Attention / Concentration: attention grossly intact and concentration grossly intact Memory / Cognition: memory grossly intact Insight: limited Judgement: limited Skin General Skin Exam: Negative for jaundice or pallor Lesions: No no lesions Rashes: No no rashes MDM MDM MDM Narrative Medical decision making narrative: Patient presented with suicidal thoughts. She feels she is getting out of control. She request to be placed in a psychiatric facility as she is scared she will hurt herself. She states she has plan to run her car into a tree to try to kill her self. She has now lost her kids and her girlfriend recently in addition to her baseline depression and anxiety. Blood work is obtained and is within normal limits. EtOH negative. Drug abuse. Positive for benzodiazepines. Serum hCG is positive, patient reports she had an a week ago and this is probably why it is positive. She is not currently . Patient currently awaiting crisis evaluation. I feel she would benefit from patient care. He clip was filled out. Patient will be signed out to incoming ED provider for monitoring until placement can be performed. Impression: 1. suicidal ideation with plan 2. Depression 3. Anxiety Lab Data Attestation: I reviewed the patient's lab results. Labs: Laboratory Results - last 24 hr 11/28/21 11/28/21 11/28/21 21:10 21:10 21:10 WBC 10.2 RBC 4.82 Hgb 13.4 Hct 40.7 MCV 84.4 MCH 27.8 MCHC 32.9 RDW Std Deviation 42.8 RDW Coeff of Nneka 13.9 Plt Count 326 MPV 9.6 Immature Gran % (Auto) 0.800 Neut % (Auto) 71.7 H Lymph % (Auto) 23.0 Spalding % (Auto) 3.6 Eos % (Auto) 0.6 Baso % (Auto) 0.3 Absolute Neuts (auto) 7.3 Absolute Lymphs (auto) 2.34 Nucleated RBC % 0 Sodium 142 Potassium 3.4 L Chloride 112 H Carbon Dioxide 25.0 Anion Gap 5 BUN 13 Creatinine 0.78 Estim Creat Clear Calc 101.80 Est GFR (MDRD) Af Amer 118 Est GFR (MDRD) Non-Af 98 BUN/Creatinine Ratio 16.7 Glucose 122 H Calcium 9.6 Serum , Qual Urine Opiates Screen Urine Methadone Screen Ur Barbiturates Screen Ur Phencyclidine Scrn Ur Amphetamines Screen MDMA (Ecstasy) Screen U Benzodiazepines Scrn Urine Cocaine Screen U Cannabinoids Screen Ur Drug Screen Comment Ethyl Alcohol 7.0 11/28/21 11/28/21 21:10 22:10 WBC RBC Hgb Hct MCV MCH MCHC RDW Std Deviation RDW Coeff of Nneka Plt Count MPV Immature Gran % (Auto) Neut % (Auto) Lymph % (Auto) Spalding % (Auto) Eos % (Auto) Baso % (Auto) Absolute Neuts (auto) Absolute Lymphs (auto) Nucleated RBC % Sodium Potassium Chloride Carbon Dioxide Anion Gap BUN Creatinine Estim Creat Clear Calc Est GFR (MDRD) Af Amer Est GFR (MDRD) Non-Af BUN/Creatinine Ratio Glucose Calcium Serum , Qual POSITIVE H Urine Opiates Screen NEGATIVE Urine Methadone Screen NEGATIVE Ur Barbiturates Screen NEGATIVE Ur Phencyclidine Scrn NEGATIVE Ur Amphetamines Screen NEGATIVE MDMA (Ecstasy) Screen NEGATIVE U Benzodiazepines Scrn POSITIVE H Urine Cocaine Screen NEGATIVE U Cannabinoids Screen NEGATIVE Ur Drug Screen Comment Ethyl Alcohol Discharge Plan Triage Chief Complaint: Suicidal ED Provider: Ruben Cruz Dx/Rx/DC Orders Primary Care Provider: Gwen Palomares Referrals: Gwen Palomares MD [Primary Care Provider] -
[2021-11-28 21:32] LABS: Anion Gap 5 (5-15); BUN 13 mg/dL (7-18); BUN/Creat Ratio 16.7 RATIO (10-20); Calcium,Total 9.6 mg/dL (8.5-10.1); Chloride 112 mmol/L (98-107); Creatinine, Serum 0.78 mg/dL (0.55-1.02); EST Glomerular Filtration Rate 98 mL/min (>60); Est Glom Filt Rate - Afr Amer 118 mL/min (>60); Glucose 122 mg/dL (74-106); Potassium 3.4 mmol/L (3.5-5.1); Sodium Level 142 mmol/L (136-145)
[2021-11-28 21:42] VITALS: RESP 16
[2021-11-28 22:00] LABS: Internal QC Validated? YES +Cl - CLEAR BKGD; Pregnancy, Serum, hCG Quali. POSITIVE Negative
[2021-11-28 22:27] LABS: Amphetamine Urine VISTA NEGATIVE (<1000 ng/mL); Barbiturate Urine VISTA NEGATIVE (< 200 ng/mL); Benzodiazepine Urine VISTA POSITIVE (< 200 ng/mL); Cocaine Urine VISTA NEGATIVE (< 300 ng/mL); Ecstacy Urine VISTA NEGATIVE (< 500 ng/mL); Methadone Urine VISTA NEGATIVE (< 300 ng/mL); PCP Urine VISTA NEGATIVE (< 25 ng/mL); THC Urine VISTA NEGATIVE (< 50 ng/mL); Vista UDS pH Range 6
--- NOTE | 2021-11-28 23:24 | NURSING ---
CALLED CRISIS AT [phone]
[2021-11-28 23:30] VITALS: RESP 18
--- NOTE | 2021-11-29 01:19 | ED.RN ---
CRISIS ON THE PHONE PATIENT AT THIS TIME
[2021-11-29 02:08] VITALS: BP 151/103; PULSE 74; RESP 16; O2SAT 100
--- NOTE | 2021-11-29 02:55 | EKG12_ITS ---
Test Reason : Blood Pressure : / mmHG Vent. Rate : 075 BPM Atrial Rate : 075 BPM P-R Int : 162 ms QRS Dur : 090 ms QT Int : 400 ms P-R-T Axes : 031 057 031 degrees QTc Int : 446 ms Normal sinus rhythm with sinus arrhythmia Normal ECG Confirmed by ROBERT HAINES, VIOLA ([id number]), supervising editor news reel PARVEEN MORA ([id number]) on 11/30/2021 8:41:03 AM Referred By: Baltazar Confirmed By:VIOLA JONES MD
[2021-11-29 03:08] VITALS: RESP 16
[2021-11-29 05:19] VITALS: RESP 16
[2021-11-29 06:05] VITALS: BP 127/88; PULSE 70; RESP 16; O2SAT 99
[2021-11-29 07:22] VITALS: RESP 16
== END 2021-11-29 08:34 ==
PROVIDERS: Emergency Provider Student in an Organized Health Care Education/Training Program; PCP Internal Medicine; Visit Provider Student in an Organized Health Care Education/Training Program
DX: R45.851 Suicidal ideations (principal); F41.9 Anxiety disorder, unspecified; F32.A Depression, unspecified
CPT/HCPCS: 80048; 80307; 82077; 84703; 85025; 87811; 93005; 99285

== ENCOUNTER 2021-12-13 19:46 | Emergency (ER) | payer OTHER, MEDICAID, SELFPAY ==
[2021-12-13 19:47] VITALS: BP 126/89; PULSE 86; RESP 15; TEMP 36.3; O2SAT 97; BMI 42.9
--- NOTE | 2021-12-13 19:55 | RAD_ITS ---
EXAM: XR RIGHT WRIST COMPLETE, 3 OR MORE VIEWS CLINICAL INDICATION: INJURY TECHNIQUE: Frontal, lateral and oblique views of the right wrist. This report was created using [employer] report generation technology. COMPARISON: None. FINDINGS: BONES/JOINTS: Unremarkable. No acute fracture. No subluxation. Normal alignment. Preservation of the joint space. No sclerotic or destructive changes observed. SOFT TISSUES: Unremarkable. No soft tissue swelling or gas. No radiopaque foreign body. RAD/Wrist min 3 Views IMPRESSION: Negative right wrist x-rays. Electronically Signed: Perfecto Cheng MD at 20:41 EDT ,
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
[2021-12-13] MEDS: Acetaminophen 500 MG Tablet 1000 MG PO (21:13)
== END 2021-12-13 21:17 | disposition home or self-care (01) ==
PROVIDERS: Emergency Provider Emergency Medicine; PCP Internal Medicine; Visit Provider Emergency Medicine
DX: S63.91XA Sprain of unspecified part of right wrist and hand, initial encounter (principal); Y04.8XXA Assault by other bodily force, initial encounter; Y93.F9 Activity, other caregiving; Y99.0 Civilian activity done for income or pay; F32.A Depression, unspecified; F41.9 Anxiety disorder, unspecified; F17.210 Nicotine dependence, cigarettes, uncomplicated; Z79.899 Other long term (current) drug therapy
CPT/HCPCS: 73110; 99283

== ENCOUNTER 2022-05-25 20:01 | Emergency (ER) | payer MEDICAID, SELFPAY ==
[2022-05-25 20:01] VITALS: BP 133/87; PULSE 114; RESP 15; TEMP 36.6; O2SAT 98; BMI 41.1
[2022-05-25 22:46] LABS: Amphetamine Urine VISTA NEGATIVE (<1000 ng/mL); Barbiturate Urine VISTA NEGATIVE (< 200 ng/mL); Benzodiazepine Urine VISTA NEGATIVE (< 200 ng/mL); Cocaine Urine VISTA NEGATIVE (< 300 ng/mL); Ecstacy Urine VISTA NEGATIVE (< 500 ng/mL); Methadone Urine VISTA NEGATIVE (< 300 ng/mL); PCP Urine VISTA NEGATIVE (< 25 ng/mL); THC Urine VISTA NEGATIVE (< 50 ng/mL); Vista UDS pH Range 5
[2022-05-25 22:49] LABS: Absolute Lymphocyte Count 1.34 X10^3/uL (0.83-4.51); Absolute Neutrophil Count 7.4 X10^3/uL (2.0-7.7); Basophil# 0.03 X10^3/uL; Basophil% 0.3 % (0-1); Eosinophil# 0.07 X10^3/uL; Eosinophils% 0.8 % (0-5); Hematocrit 40.9 % (37-47); Hemoglobin 13.6 g/dL (12.0-15.0); Lymphocyte # 1.34 X10^3/ul (0.83-4.51); Lymphocyte % 14.5 % (19-41); Mean Corp Hgb Conc 33.3 g/dL (32-36); Mean Corpuscular Hgb 28.1 pg (27.0-32.0); Mean Corpuscular Volume 84.5 fL (81-99); Mean Platelet Vol. 9.3 fl (6.2-12.0); Monocyte# 0.33 X10^3/uL; Monocyte% 3.6 % (0-10); NRBC Flagged by Analyzer 0 % (0-5); Neutrophil # 7.44 X10^3/uL (2.7-7.7); Neutrophil % 80.6 % (47-70); Platelet Count 303 K/mm3 (150-450); RBC Distribution Width CV 14.4 % (11.6-14.6); RBC Distribution Width SD 44.1 fl (35.1-43.9); Red Blood Count 4.84 M/mm3 (4.2-5.4); White Blood Count 9.2 K/mm3 (4.4-11.0)
[2022-05-25 23:00] LABS: Internal QC Validated? YES +Cl - CLEAR BKGD; Pregnancy, Serum, hCG Quali. NEGATIVE Negative
[2022-05-25 23:03] LABS: Alcohol, Blood (Medical)-Serum < 3.0 mg/dL
[2022-05-25 23:04] LABS: Anion Gap 3 (5-15); BUN 14 mg/dL (7-18); Calcium,Total 9.4 mg/dL (8.5-10.1); Chloride 108 mmol/L (98-107); Creatinine, Serum 0.74 mg/dL (0.55-1.02); EST Glomerular Filtration Rate 104 mL/min (>60); Est Glom Filt Rate - Afr Amer 126 mL/min (>60); Glucose 105 mg/dL (74-106); Potassium 3.4 mmol/L (3.5-5.1); Sodium Level 138 mmol/L (136-145)
[2022-05-26] VITALS (7 sets, daily range): BP systolic 141; BP diastolic 79; PULSE 97; RESP 14–20; O2SAT 100
--- NOTE | 2022-05-26 02:05 | ED.RN ---
[facility] no female beds at this time. will review in the morning for discharges
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
--- NOTE | 2022-05-26 03:24 | NURSING ---
[facility] ACCEPTED PATIENT- CAN ARRIVE AFTER 0700A
== END 2022-05-26 08:56 ==
PROVIDERS: Emergency Provider Emergency Medicine; PCP Internal Medicine; Visit Provider Emergency Medicine
DX: F32.A Depression, unspecified (principal); R45.851 Suicidal ideations; F41.9 Anxiety disorder, unspecified; E66.9 Obesity, unspecified; F17.210 Nicotine dependence, cigarettes, uncomplicated; F17.290 Nicotine dependence, other tobacco product, uncomplicated; Z79.899 Other long term (current) drug therapy
CPT/HCPCS: 36415; 80048; 80307; 82077; 84703; 85025; 87426; 99284

== ENCOUNTER 2022-10-07 09:22 | Emergency (ER) | payer MEDICAID, SELFPAY ==
[2022-10-07 09:23] VITALS: BP 143/83; PULSE 105; RESP 16; TEMP 36.9; O2SAT 97; BMI 42.0
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
[2022-10-07] MEDS: Ondansetron ODT 4 MG Tablet PO (10:19)
[2022-10-07 10:28] VITALS: PULSE 73; RESP 16; O2SAT 98
== END 2022-10-07 10:29 | disposition home or self-care (01) ==
PROVIDERS: Emergency Provider Emergency Medicine; PCP Internal Medicine; Visit Provider Emergency Medicine
DX: G44.309 Post-traumatic headache, unspecified, not intractable (principal); S00.83XA Contusion of other part of head, initial encounter; S00.11XA Contusion of right eyelid and periocular area, initial encounter; W01.190A Fall on same level from slipping, tripping and stumbling with subsequent striking against furniture, initial encounter; F17.210 Nicotine dependence, cigarettes, uncomplicated; F17.290 Nicotine dependence, other tobacco product, uncomplicated; Z79.899 Other long term (current) drug therapy
CPT/HCPCS: 99283